=== PATIENT | female | born 1945 | race Caucasian/White ===

== ENCOUNTER 2017-03-30 11:45 | Observation (INO) | payer MEDICARE, MEDICAID ==
--- NOTE | 2017-03-30 12:06 | EDM.PDOC ---
[id number]: SICK FROM FOOT SURG FRI. [id number] Time Seen by Provider: 03/30/17 12:06 Source of Information: Reports: Patient, Family, Old records, RN, RN notes reviewed History Limitations: Reports: No limitations - History of Present Illness INITIAL COMMENTS - FREE TEXT/NARRATIVE: Patient just discharged a few days ago from [facility], status post right lower extremity surgery and complaining of nausea and vomiting, which she believes is due to constipation. Last BM 4-5 days ago (prior to surgery). Denies fever, chills, urinary symptoms or cough. Quality: Reports: Ache Severity: severe Improves with: Reports: None Worsens with: Reports: None Associated Symptoms: Reports: no other symptoms Right Leg Pain Score (Numeric/FACES): 10 - Related Data Allergies Allergy/AdvReac Type Severity Reaction Status Date / Time codeine Allergy Nausea and Verified 12/07/16 17:51 Vomiting Home Meds: Home Meds Gabapentin [Neurontin] 800 mg PO DAILY 12/07/16 [History] Calcium Carbonate [Calcium] 500 mg PO ASDIRECTED 03/30/17 [History] Cyanocobalamin (Vitamin B-12) [Vitamin B-12] 100 mcg PO ASDIRECTED 03/30/17 [ History] DULoxetine [Cymbalta] 30 mg PO DAILY 03/30/17 [History] DULoxetine [Cymbalta] 60 mg PO DAILY 03/30/17 [History] Magnesium Amino Acid Chelate [Magnesium] 100 mg PO ASDIRECTED 03/30/17 [History] Multivitamin [Multivitamins] 1 each PO ASDIRECTED 03/30/17 [History] [place]-3 Acid Ethyl Esters 1 gm PO ASDIRECTED 03/30/17 [History] Rizatriptan Benzoate [Maxalt] 5 mg PO ASDIRECTED PRN 03/30/17 [History] Acetaminophen [Tylenol] 650 mg PO Q4H PRN #0 tablet 03/31/17 [Rx] Baclofen [Lioresal] 10 mg PO TID PRN #0 03/31/17 [Rx] Docusate Sodium/Sennosides [Senna Plus] 1 tab PO BEDTIME PRN #0 tablet 03/31/17 [Rx] Polyethylene Glycol 3350 [MiraLAX] 17 gm PO DAILY PRN #0 packet 03/31/17 [Rx] oxyCODONE 5 mg PO Q4H PRN #0 03/31/17 [Rx] oxyCODONE HCl [Oxycodone HCl] 10 mg PO ASDIRECTED PRN #0 03/31/17 [Rx] traMADol HCl [Tramadol HCl] 50 mg PO ASDIRECTED PRN #0 03/31/17 [Rx] Past Medical History - Past Health History Medical/Surgical History: Denies Medical/Surgical History HEENT History: Reports: None Cardiovascular History: Reports: None Respiratory History: Reports: None Gastrointestinal History: Reports: None Genitourinary History: Reports: None [employer]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 Musculoskeletal History: Reports: Arthritis, Fibromyalgia Neurological History: Reports: Migraines Psychiatric History: Reports: None Endocrine/Metabolic History: Reports: Obesity/BMI 30+ Hematologic History: Reports: None Immunologic History: Reports: None Oncologic (Cancer) History: Reports: None Dermatologic History: Reports: None - Past Surgical History GI Surgical History: Reports: Bariatric procedure (lap band), Hernia, abdominal Musculoskeletal Surgical History: Reports: Other (see below) (right leg surgery) Social & Family History - Family History Family Medical History: Noncontributory - Tobacco Use Smoking Status *Q: Never Smoker - Caffeine Use Caffeine Use: Reports: Coffee, Soda - Recreational Drug Use Recreational Drug Use: No - Living Situation & Occupation Living situation: Reports: with family ED ROS GENERAL - Review of Systems Review Of Systems: ROS reveals no pertinent complaints other than HPI. ED EXAM, GENERAL - Physical Exam Exam: See Below Exam Limited By: No limitations General Appearance: alert, WD/WN, no apparent distress Eye Exam: bilateral eye: normal inspection Ears: normal external exam, normal canal, hearing grossly normal, normal TMs Nose: normal inspection, normal mucosa, no blood Throat/Mouth: Other (dry oral membranes) Head: atraumatic, normocephalic Neck: normal inspection, supple, non-tender, full range of motion Respiratory/Chest: no respiratory distress, lungs clear, normal breath sounds, no accessory muscle use, chest non-tender Cardiovascular: normal peripheral pulses, regular rate, rhythm, no edema, no gallop, no JVD, no murmur, no rub GI/Abdominal: Other (mild diffuse tenderness, normal bowel sounds, nondistended , no guarding, reound or rigidity. ) Back Exam: normal inspection, full range of motion, NT Extremities: other (RLE splint not remved.) Neurological: alert, oriented, CN II-XII intact, normal cognition, normal gait, normal reflexes, no motor/sensory deficits Psychiatric: normal affect, normal mood Skin Exam: Warm, Dry, Intact, Normal color, No rash Course - Vital Signs Last Recorded V/S: Last Vital Signs Temp 37.6 C 03/31/17 06:11 Pulse 71 03/31/17 06:11 Resp 16 03/31/17 06:11 BP 141/58 H 03/31/17 06:11 Pulse Ox 94 L 03/31/17 06:11 - Orders/Labs/Meds Orders: Active Orders 24 hr Category Date Time Status Enema [RC] ASDIRECTED Care 03/30/17 16:42 Active Labs: Laboratory Tests 03/30/17 03/30/17 03/30/17 Range/Units 13:21 13:32 13:32 WBC 7.2 (5.0-10.0) 10^3/uL RBC 4.12 L (4.2-5.4) 10^6/uL Hgb 12.7 (12.0-16.0) g/dL Hct 39.5 (37.0-47.0) % MCV 95.9 (80-100) fL MCH 30.8 (27.0-34.0) pg MCHC 32.2 L (33.0-35.0) g/dL Plt Count 208 (150-450) 10^3/uL Neut % (Auto) 59.5 (42.2-75.2) % Lymph % (Auto) 27.6 (20.5-50.1) % [place] % (Auto) 11.1 H (2-8) % Eos % (Auto) 1.4 (1.0-3.0) % Baso % (Auto) 0.4 (0.0-1.0) % Sodium 138 (135-145) mmol/L Potassium 3.8 (3.6-5.0) mmol/L Chloride 103 (101-111) mmol/L Carbon Dioxide 27.0 (21.0-31.0) mmol/L Anion Gap 11.8 BUN 6 L (7-18) mg/dL Creatinine 0.6 (0.6-1.3) mg/dL Est Cr Clr Drug Dosing TNP Estimated GFR (MDRD) > 60 BUN/Creatinine Ratio 10.00 Glucose 117 H (74-105) mg/dL Calcium 9.2 (8.4-10.2) mg/dl Total Bilirubin 0.7 (0.2-1.0) mg/dL AST 33 (10-42) IU/L ALT 28 (10-60) IU/L Alkaline Phosphatase 86 (42-121) IU/L Total Protein 6.3 L (6.7-8.2) g/dl Albumin 3.7 (3.2-5.5) g/dl Globulin 2.6 Albumin/Globulin Ratio 1.42 Amylase 18 L (28-100) U/L Lipase 17 L (22-51) U/L Urine Color Yellow (YELLOW) Urine Appearance Clear (CLEAR) Urine pH 8.5 (5.0-9.0) Ur Specific [place] 1.015 (1.005-1.030) Urine Protein Negative (NEGATIVE) Urine Glucose (UA) Negative (NEGATIVE) Urine Ketones 40 H (NEGATIVE) Urine Occult Blood Negative (NEGATIVE) Urine Nitrite Negative (NEGATIVE) Urine Bilirubin Negative (NEGATIVE) Urine Urobilinogen 0.2 (0.2-1.0) mg/dL Ur Leukocyte Esterase Negative (NEGATIVE) Urine RBC 0-5 /HPF Urine WBC 0-5 (0-5/HPF) /HPF Ur Epithelial Cells Occasional /HPF Urine Bacteria Few (0-FEW/HPF) /HPF Meds: Medications Discontinued Medications Generic Name Dose Route Start Last Admin Trade Name Freq PRN Reason Stop Dose Admin Acetaminophen 650 mg 03/30/17 19:53 Tylenol PO Q4H PRN Pain (Mild 1-3)/fever Duloxetine HCl 30 mg 03/30/17 21:00 Cymbalta PO BID TOMY Gabapentin 800 mg 03/31/17 09:00 03/31/17 10:10 Neurontin PO 800 mg DAILY TOMY Administration Heparin Sodium (Porcine) 5,000 units 03/30/17 22:00 03/31/17 06:13 Heparin Sodium SUBCUT 5,000 units Q8HR TOMY Administration Sodium Chloride 1,000 mls @ 999 mls/hr 03/30/17 14:55 03/30/17 17:25 Normal Saline IV 03/30/17 15:55 Infused .BOLUS ONE Infusion Sodium Chloride 1,000 mls @ 1,000 mls/hr 03/30/17 20:00 Normal Saline IV ASDIRECTED TOMY Sodium Chloride 1,000 mls @ 100 mls/hr 03/30/17 20:30 03/30/17 20:36 Normal Saline IV 100 mls/hr ASDIRECTED TOMY Administration Ibuprofen 200 mg 03/30/17 20:03 Motrin PO ASDIRECTED TOMY Magnesium Citrate 150 ml 03/30/17 14:56 03/30/17 18:11 Citrate Of Magnesia PO 03/30/17 14:57 150 ml ONETIME ONE Administration Magnesium Hydroxide 30 ml 03/30/17 19:53 Milk Of Magnesia PO Q12H PRN Constipation Morphine Sulfate 2 mg 03/30/17 19:53 Morphine IVPUSH Q2H PRN Pain (severe 7-10) Naloxone HCl 4 mg 03/30/17 14:58 03/30/17 15:17 Narcan .XX 03/30/17 14:59 4 mg ONETIME ONE Administration Non-Formulary Medication 60 mg 03/31/17 09:00 Duloxetine [Cymbalta] PO DAILY [facility] Non-Formulary Medication 100 mg 03/30/17 19:45 Magnesium Amino Acid Chelate [Magnesium] PO ASDIRECTED [facility] Non-Formulary Medication 5 mg 03/30/17 19:40 Rizatriptan Benzoate [Maxalt] PO ASDIRECTED PRN Headache Ondansetron HCl 4 mg 03/30/17 14:55 03/30/17 15:15 Zofran IV 03/30/17 14:56 4 mg ONETIME ONE Administration Ondansetron HCl 4 mg 03/30/17 19:53 Zofran IVPUSH Q6H PRN Nausea/Vomiting Oxycodone HCl 10 mg 03/30/17 20:15 03/30/17 20:38 Oxycodone PO 10 mg ASDIRECTED TOMY Administration Oxycodone HCl 5 mg 03/30/17 19:45 03/31/17 06:15 Oxycodone PO Not Given Q4H TOMY Oxycodone HCl 10 mg 03/31/17 06:27 Oxycodone PO Q4H PRN severe pain Oxycodone HCl 5 mg 03/31/17 06:27 Oxycodone PO Q4H PRN moderate pain Polyethylene Glycol 17 gm 05/08/17 19:53 03/30/17 20:32 Miralax PO 17 gm DAILY PRN Administration Constipation Promethazine HCl 6.25 mg 03/30/17 19:53 Phenergan IM Q6H PRN Nausea/Vomiting Senna/Docusate Sodium 1 tab 03/30/17 19:53 03/30/17 20:37 Senna Plus PO 1 tab BEDTIME PRN Administration Constipation Sodium Chloride 10 ml 03/30/17 14:55 03/30/17 18:10 Saline Flush FLUSH 10 ml ASDIRECTED PRN Administration Keep Vein Open Tramadol HCl 50 mg 03/30/17 19:45 Ultram PO ASDIRECTED TOMY Zolpidem Tartrate 5 mg 03/30/17 19:53 Ambien PO BEDTIME PRN Sleep - Radiology Interpretation Free Text/Narrative:: Abdomen: Obstipation per rad report. Departure - Departure Time of Disposition: 15:30 Disposition: Refer to Observation Clinical Impression: Obstipation Constipation Qualifiers: Constipation type: drug induced constipation Qualified Code(s): K59.03 - Drug induced constipation Vomiting Qualifiers: Vomiting type: unspecified Vomiting Intractability: unspecified Nausea presence : with nausea Qualified Code(s): R11.2 - Nausea with vomiting, unspecified - My Orders Last 24 Hours: My Active Orders 03/30/17 16:42 Enema [RC] ASDIRECTED - Assessment/Plan Last 24 Hours: My Active Orders 03/30/17 16:42 Enema [RC] ASDIRECTED Departure - Departure Time of Disposition: 18:51 (Admit to Dr. Jiang) Disposition: Refer to Observation Condition: fair Clinical Impression: Obstipation Constipation Qualifiers: Constipation type: drug induced constipation Qualified Code(s): K59.03 - Drug induced constipation Vomiting Qualifiers: Vomiting type: unspecified Vomiting Intractability: unspecified Nausea presence : with nausea Qualified Code(s): R11.2 - Nausea with vomiting, unspecified
[2017-03-30 14:01] LABS: CHLORIDE,CL 103 mmol/L (101-111); SODIUM,NA 138 mmol/L (135-145)
[2017-03-30] MEDS ORDERED: Ondansetron 4 MG/2 ML SDV IV ONE (14:55)
[2017-03-30] MEDS ORDERED: Sodium Chloride 0.9% 1,000 ML IV ONE (14:55)
[2017-03-30] MEDS ORDERED: Sodium Chloride 0.9% 10 ML Syringe FLUSH PRN (14:55)
[2017-03-30] MEDS ORDERED: Magnesium Citrate Solution 296 ML Bottle PO ONE (14:56)
[2017-03-30] MEDS ORDERED: Naloxone 2 MG/2 ML Syringe ONE (14:58)
--- NOTE | 2017-03-30 15:16 | CR ---
CLINICAL HISTORY: 71-year-old female with nausea, vomiting and constipation. INTERPRETATION: Flat plate and left lateral decubitus films of the abdomen confirm previous cholecys tectomy and gastric band surgery (probable gastroesophageal surgery at the hiatus). Levorotoscoliosis, multilevel disc disease and chronic hypertrophic arthritic changes of the spine. Large volume of stool in the right and transverse colon. No abdominal soft tissue mass or signs of mechanical small bowel obstruction. Lung bases are clear. CONCLUSION: Obstipation. Signs of multiple previous surgeries. No current evidence of mechanical bowel obstruction.
[2017-03-30] MEDS ORDERED: RIZATRIPTAN BENZOATE 5 MG PO PRN (19:40)
[2017-03-30] MEDS ORDERED: MAGNESIUM AMINO ACID CHELATE PO SCH (19:45)
[2017-03-30] MEDS ORDERED: traMADol 50 MG Tab PO SCH (19:45)
[2017-03-30] MEDS ORDERED: Magnesium Hydroxide 400 MG/5 ML Susp 30 ML Cup PO PRN (19:53)
[2017-03-30] MEDS ORDERED: Morphine 2 MG/ML Syringe IVPUSH PRN (19:53)
[2017-03-30] MEDS ORDERED: Acetaminophen 325 MG Tab PO PRN (19:53)
[2017-03-30] MEDS ORDERED: Polyethylene Glycol 3350 Powder 17 GM Packet PO PRN (19:53)
[2017-03-30] MEDS ORDERED: Zolpidem 5 MG Tab PO PRN (19:53)
[2017-03-30] MEDS ORDERED: Ondansetron 4 MG/2 ML SDV IVPUSH PRN (19:53)
[2017-03-30] MEDS ORDERED: Promethazine 25 MG/ML SDV IM PRN (19:53)
[2017-03-30] MEDS ORDERED: Sodium Chloride 0.9% 1,000 ML IV SCH ×2 (20:00→20:30)
[2017-03-30] MEDS ORDERED: Ibuprofen 200 MG Tab PO SCH (20:03)
--- NOTE | 2017-03-30 20:11 | PCM.HP ---
H&P History of Present Illness - General Date of Service: 03/30/17 Admit Problem/Dx: Admission Diagnosis/Problem Admission Diagnosis/Problem Constipation Source of Information: Patient History Limitations: Reports: No limitations - History of Present Illness Initial Comments - Free Text/Narative: Ms Melani Francis is a 71-year-old female with medical history of migraines, osteoarthritis, fibromyalgia, obstructive sleep apnea, depression and anxiety who underwent surgical right tibiotalar revision on 03/27/17 due to continued pain. surgery was performed under general anesthesia. only postoperative condition was elevated blood pressure at 190s which was thought to be due to pain. patient presented to the emergency room today for not having bowel movement for over one week and started having nausea and abdominal discomfort since yesterday. She denies vomiting, sharp abdomen pain, fever, chills, chest pain, shortness of breath, or any other symptoms. patient is still complaining of her postsurgical right leg pain and is taking her oxycodone in addition to her home medications. She could not tell why she was taking baclofen. in the emergency room her CBC and BMP were unremarkable. Abdomen x-ray was significant for significant amount of stool in the colon. She was given milk of magnesia, naloxone, IV fluids, and 2 enemas during extended ER stay. Patient had few small bowel movement but she did not feel comforted. However after being admitted for observation she had good bowel movement and she felt better afterwards. She does not feel going home tonight. Right Leg Pain Score (Numeric/FACES): 10 - Related Data Allergies/Adverse Reactions: Allergies Allergy/AdvReac Type Severity Reaction Status Date / Time codeine Allergy Nausea and Verified 12/07/16 17:51 Vomiting Home Medications: Home Meds Gabapentin [Neurontin] 800 mg PO DAILY 12/07/16 [History] Baclofen [Lioresal] 10 mg PO TID 03/30/17 [History] Calcium Carbonate [Calcium] 500 mg PO ASDIRECTED 03/30/17 [History] Cyanocobalamin (Vitamin B-12) [Vitamin B-12] 100 mcg PO ASDIRECTED 03/30/17 [ History] DULoxetine [Cymbalta] 30 mg PO BID 03/30/17 [History] DULoxetine [Cymbalta] 60 mg PO DAILY 03/30/17 [History] Ibuprofen [Advil] 200 mg PO ASDIRECTED 03/30/17 [History] Magnesium Amino Acid Chelate [Magnesium] 100 mg PO ASDIRECTED 03/30/17 [History] Multivitamin [Multivitamins] 1 each PO ASDIRECTED 03/30/17 [History] [place]-3 Acid Ethyl Esters 1 gm PO ASDIRECTED 03/30/17 [History] Rizatriptan Benzoate [Maxalt] 5 mg PO ASDIRECTED PRN 03/30/17 [History] oxyCODONE 5 mg PO Q4H 03/30/17 [History] oxyCODONE HCl [Oxycodone HCl] 10 mg PO ASDIRECTED 03/30/17 [History] traMADol HCl [Tramadol HCl] 50 mg PO ASDIRECTED 03/30/17 [History] Past Medical History - Past Health History Medical/Surgical History: Denies Medical/Surgical History HEENT History: Reports: None Cardiovascular History: Reports: None Respiratory History: Reports: None Gastrointestinal History: Reports: None Genitourinary History: Reports: None 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 Musculoskeletal History: Reports: Arthritis, Fibromyalgia Neurological History: Reports: Migraines Psychiatric History: Reports: None Endocrine/Metabolic History: Reports: Obesity/BMI 30+ Other Endocrine/Metabolic History: impaired glucose tolerance Hematologic History: Reports: None Immunologic History: Reports: None Oncologic (Cancer) History: Reports: None Dermatologic History: Reports: None Social & Family History - Family History Family Medical History: Noncontributory OBGYN: Reports: - Tobacco Use Smoking Status *Q: Never Smoker - Caffeine Use Caffeine Use: Reports: Coffee, Soda - Recreational Drug Use Recreational Drug Use: No H&P Review of Systems - Review of Systems: Review Of Systems: See Below General: Reports: no symptoms HEENT: Reports: no symptoms Pulmonary: Reports: No Symptoms Cardiovascular: Reports: no symptoms Gastrointestinal: Reports: Constipation. Denies: Black stool, Bloody stool, Diarrhea, Decreased appetite, Difficulty swallowing, Distension, Hematemesis, Hematochezia, Melena, Stool incontinence, Vomiting Genitourinary: Reports: no symptoms Musculoskeletal: Reports: no symptoms (accept what mentioned above) Skin: Reports: no symptoms Psychiatric: Reports: no symptoms Neurological: Reports: No Symptoms Hematologic/Lymphatic: Reports: no symptoms Immunologic: Reports: no symptoms Exam - Exam Exam: See Below - Vital Signs Vital Signs: Last Vital Signs Temp 36.4 C 03/30/17 13:20 Pulse 73 03/30/17 16:58 Resp 20 03/30/17 16:58 BP 169/83 H 03/30/17 16:58 Pulse Ox 98 03/30/17 16:58 Weight: 96.162 kg - Exam General: alert, oriented, cooperative. No: mild distress, moderate distress, severe distress, sedated, lethargic, obtunded HEENT: Conjunctiva clear, EACs clear, EOMI, Hearing intact, Mucosa moist & pink , Nares patent, Normal nasal septum, Posterior pharynx clear, Pupils equal, Pupils reactive, TMs clear Neck: supple, trachea midline Lungs: Clear to auscultation, Normal respiratory effort Cardiovascular: regular rate, regular rhythm Abdomen: normal bowel sounds, soft, tenderness (mild and generalized). No: organomegaly, peritoneal signs, distention, guarding, rigidity, rebound, absent bowel sounds, hyperactive bowel sounds, hypoactive bowel sounds, tympanic bowel sounds, hepatomegaly, splenomegaly, hernia, mass, McBurney's sign, obturator sign, Rovsing's sign, Rosales's sign (Female) Exam: Deferred Rectal (Female) Exam: Deferred Back Exam: normal inspection, full range of motion Extremities: normal pulses, edema (postsurgical edema and some right leg above the splint. Splint is intact). No: clubbing, cyanosis Skin: warm, dry, intact Neurological: cranial nerves intact, strength equal bilateral, normal speech, normal tone Neuro Extensive - Mental Status: alert, oriented x3, normal mood/affect, normal cognition, memory intact Neuro Extensive - Motor, Sensory, Reflexes: CN II-XII intact Psychiatric: alert, normal affect, normal mood. No: anxious, depressed, agitated, suicidal ideation, homicidal ideation, hallucinations, withdrawal symptoms - Patient Data Result Diagrams: 03/30/17 13:32 03/30/17 13:32 *Q Meaningful Use (ADM) - VTE *Q VTE Criteria *Q: - Stroke *Q Stroke Criteria *Q: - AMI *Q AMI Criteria *Q: - Problem List (1) Nausea SNOMED Code(s): 175115262 ICD Code: R11.0 - NAUSEA Status: Acute Current Visit: Yes (2) Constipation SNOMED Code(s): 43444903 ICD Code: K59.00 - CONSTIPATION, UNSPECIFIED Status: Acute Current Visit : Yes Qualifiers: Constipation type: drug induced constipation Qualified Code(s): K59.03 - Drug induced constipation (3) Obstipation SNOMED Code(s): 675068668 ICD Code: K59.00 - CONSTIPATION, UNSPECIFIED Status: Acute Current Visit : Yes Problem List Initiated/Reviewed/Updated: Yes Orders Last 24hrs: Active Orders 24 hr Category Date Time Status Patient Status [ADT] Routine ADT 03/30/17 19:53 Ordered Intake and Output [RC] QSHIFT Care 03/30/17 19:55 Ordered Oxygen Therapy [RC] PRN Care 03/30/17 19:53 Ordered Up ad Jennifer [RC] ASDIRECTED Care 03/30/17 19:53 Ordered VTE/DVT Education [RC] PER UNIT ROUTINE Care 03/30/17 19:53 Ordered Vital Signs [RC] Q4H Care 03/30/17 19:53 Ordered Regular Diet [DIET] Diet 03/30/17 Breakfast Ordered BASIC METABOLIC PANEL,BMP [CHEM] AM Lab 03/31/17 05:11 Ordered MAGNESIUM [CHEM] AM Lab 03/31/17 05:11 Ordered Acetaminophen [Tylenol] Med 03/30/17 19:53 Ordered 650 mg PO Q4H PRN DULoxetine [Cymbalta] Med 03/30/17 21:00 Ordered 30 mg PO BID DULoxetine [Cymbalta] Med 03/31/17 09:00 Ordered 60 mg PO DAILY Docusate Sodium/Sennosides [Senna Plus] Med 03/30/17 19:53 Ordered 1 tab PO BEDTIME PRN Gabapentin Med 03/31/17 09:00 Ordered 800 mg PO DAILY Heparin Sodium Med 03/30/17 22:00 Ordered 5,000 units SUBCUT Q8HR Ibuprofen [Advil] Med 03/30/17 19:45 Ordered 200 mg PO ASDIRECTED Magnesium Amino Acid Chelate [Magnesium] Med 03/30/17 19:45 Ordered 100 mg PO ASDIRECTED Magnesium Hydroxide [Milk of Magnesia] Med 03/30/17 19:53 Ordered 30 ml PO Q12H PRN Morphine Med 03/30/17 19:53 Ordered 2 mg IVPUSH Q2H PRN Ondansetron [Zofran] Med 03/30/17 19:53 Ordered 4 mg IVPUSH Q6H PRN Polyethylene Glycol 3350 [MiraLAX] Med 03/30/17 19:53 Ordered 17 gm PO DAILY PRN Promethazine [Phenergan] Med 03/30/17 19:53 Ordered 6.25 mg IM Q6H PRN Rizatriptan Benzoate [Maxalt] Med 03/30/17 19:40 Ordered 5 mg PO ASDIRECTED PRN Sodium Chloride 0.9% [Normal Saline] 1,000 ml Med 03/30/17 20:00 Ordered IV ASDIRECTED Zolpidem [Ambien] Med 03/30/17 19:53 Ordered 5 mg PO BEDTIME PRN oxyCODONE Med 03/30/17 19:45 Ordered 5 mg PO Q4H oxyCODONE HCl [Oxycodone HCl] Med 03/30/17 19:45 Ordered 10 mg PO ASDIRECTED traMADol [Ultram] Med 03/30/17 19:45 Ordered 50 mg PO ASDIRECTED Resuscitation Status Routine Resus Stat 03/30/17 19:53 Ordered Medication Orders Acetaminophen (Tylenol) 650 mg PO Q4H PRN PRN Reason: Pain (Mild 1-3)/fever Duloxetine HCl (Cymbalta) 30 mg PO BID [facility] Gabapentin (Neurontin) 800 mg PO DAILY [facility] Heparin Sodium (Porcine) (Heparin Sodium) 5,000 units SUBCUT Q8HR [facility] Sodium Chloride (Normal Saline) 1,000 mls @ 1,000 mls/hr IV ASDIRECTED [facility] Magnesium Hydroxide (Milk Of Magnesia) 30 ml PO Q12H PRN PRN Reason: Constipation Morphine Sulfate (Morphine) 2 mg IVPUSH Q2H PRN PRN Reason: Pain (severe 7-10) Non-Formulary Medication (Duloxetine [Cymbalta]) 60 mg PO DAILY [facility] Non-Formulary Medication (Ibuprofen [Advil]) 200 mg PO ASDIRECTED [facility] Non-Formulary Medication (Magnesium Amino Acid Chelate [Magnesium]) 100 mg PO ASDIRECTED [facility] Non-Formulary Medication (Rizatriptan Benzoate [Maxalt]) 5 mg PO ASDIRECTED PRN PRN Reason: Headache Non-Formulary Medication (Oxycodone Hcl [Oxycodone Hcl]) 10 mg PO ASDIRECTED [facility] Ondansetron HCl (Zofran) 4 mg IVPUSH Q6H PRN PRN Reason: Nausea/Vomiting Oxycodone HCl (Oxycodone) 5 mg PO Q4H TOMY Polyethylene Glycol (Miralax) 17 gm PO DAILY PRN PRN Reason: Constipation Promethazine HCl (Phenergan) 6.25 mg IM Q6H PRN PRN Reason: Nausea/Vomiting Senna/Docusate Sodium (Senna Plus) 1 tab PO BEDTIME PRN PRN Reason: Constipation Sodium Chloride (Saline Flush) 10 ml FLUSH ASDIRECTED PRN PRN Reason: Keep Vein Open Last Admin: 03/30/17 18:10 Dose: 10 ml Tramadol HCl (Ultram) 50 mg PO ASDIRECTED [facility] Zolpidem Tartrate (Ambien) 5 mg PO BEDTIME PRN PRN Reason: Sleep Assessment/Plan Comment:: constipation, most likely from opiates Patient received milk of magnesia, naloxone, IV fluids, and 2 enemas during extended ER stay he shouldn't had some relief after being admitted Nausea From constipation Antiemetic as needed Right leg pain, status post surgical repair on 03/27/17 Pain medicine as needed. She was advised to avoid frequent usage of opiates of possible fibromyalgia Continue his Cymbalta and Neurontin History of migraine Rizatriptan as needed patient continued to bowl movement and dfields that are tomorrow she can be discharged tomorrow. heparin for DVT prophylaxis She wants to be full code
[2017-03-30] MEDS ORDERED: oxyCODONE 5 MG Tab PO SCH (20:15)
[2017-03-30] MEDS: Heparin Sodium 5,000 Units/ML Vial SUBCUT SCH (20:43)
[2017-03-30] MEDS ORDERED: DULoxetine 30 MG Cap PO SCH (21:00)
[2017-03-30] MEDS: oxyCODONE 5 MG Tab PO SCH (21:49)
[2017-03-31] MEDS: Heparin Sodium 5,000 Units/ML Vial SUBCUT SCH ×2 (00:17→06:13)
[2017-03-31] MEDS: oxyCODONE 5 MG Tab PO SCH ×2 (00:22→06:15)
[2017-03-31 06:13] VITALS: BP 141/58
[2017-03-31] MEDS ORDERED: oxyCODONE 5 MG Tab PO PRN ×2 (06:27)
[2017-03-31 07:03] LABS: CHLORIDE,CL 106 mmol/L (101-111); SODIUM,NA 140 mmol/L (135-145)
[2017-03-31] MEDS ORDERED: Gabapentin 400 MG Cap PO SCH (09:00)
[2017-03-31] MEDS ORDERED: Non-Formulary Medication 1 Each (Duloxetine [Cymbalta] 60 MG) PO SCH (09:00)
--- NOTE | 2017-03-31 09:58 | PCM.DCSUM1 ---
Discharge Summary - Hospital Course Free Text/Narrative:: Ms Melani Francis is a 71-year-old female with medical history of migraines, osteoarthritis, fibromyalgia, obstructive sleep apnea, depression and anxiety who underwent surgical right tibiotalar revision on 03/27/17 due to continued pain. surgery was performed under general anesthesia. only postoperative issue was elevated blood pressure at 190s which was thought to be due to pain. patient presented to the emergency room yesterday for not having bowel movement for over one week and started having nausea and abdominal discomfort the day before admission. She denies vomiting, sharp abdomen pain, fever, chills, chest pain, shortness of breath, or any other symptoms. patient is still complaining of her postsurgical right leg pain and is taking her oxycodone in addition to her home medications. She could not tell why she was taking baclofen. In the emergency room her CBC and BMP were unremarkable. Abdomen x-ray was significant for significant amount of stool in the colon. She was given milk of magnesia, naloxone, IV fluids, and 2 enemas during extended ER stay. Patient had few small bowel movement but she did not feel comforted. However after being admitted for observation she had one large bowel movement and she felt better afterwards. since then patient has been treated over abdominal discomfort , nausea and is feeling comfortable. Her leg pain is controlled. she had an uneventful night and she has no concern this morning. she is passing gas. She wants to go home. She was discharged home. I changed her opiate medication and baclofen from schedule to as needed. She was advised on drinking that amount of fluid, adding supplemental fibers, and using stool softener as needed. She was advised to discuss the baclofen with her primary care provider. Patient verbalized understanding and agreed to the plan. heparin was given for DVT prophylaxis She wanted to be full code - Discharge Data Discharge Date: 03/31/17 Discharge Disposition: Home, Self-Care 01 Condition: Good - Discharge Diagnosis/Problem(s) (1) Nausea SNOMED Code(s): 963477397 ICD Code: R11.0 - NAUSEA Status: Acute Current Visit: Yes (2) Constipation SNOMED Code(s): 55092960 ICD Code: K59.00 - CONSTIPATION, UNSPECIFIED Status: Acute Current Visit : Yes Qualifiers: Constipation type: drug induced constipation Qualified Code(s): K59.03 - Drug induced constipation (3) Obstipation SNOMED Code(s): 149368633 ICD Code: K59.00 - CONSTIPATION, UNSPECIFIED Status: Acute Current Visit : Yes - Patient Instructions Diet: Heart Healthy Diet Activity: As Tolerated Showering/Bathing: May Shower Notify Provider of: Fever, Nausea and/or Vomiting - Discharge Plan Home Medications: Home Meds Gabapentin [Neurontin] 800 mg PO DAILY 12/07/16 [History] Calcium Carbonate [Calcium] 500 mg PO ASDIRECTED 03/30/17 [History] Cyanocobalamin (Vitamin B-12) [Vitamin B-12] 100 mcg PO ASDIRECTED 03/30/17 [ History] DULoxetine [Cymbalta] 30 mg PO BID 03/30/17 [History] DULoxetine [Cymbalta] 60 mg PO DAILY 03/30/17 [History] Magnesium Amino Acid Chelate [Magnesium] 100 mg PO ASDIRECTED 03/30/17 [History] Multivitamin [Multivitamins] 1 each PO ASDIRECTED 03/30/17 [History] [place]-3 Acid Ethyl Esters 1 gm PO ASDIRECTED 03/30/17 [History] Rizatriptan Benzoate [Maxalt] 5 mg PO ASDIRECTED PRN 03/30/17 [History] Acetaminophen [Tylenol] 650 mg PO Q4H PRN #0 tablet 03/31/17 [Rx] Baclofen [Lioresal] 10 mg PO TID PRN #0 03/31/17 [Rx] Docusate Sodium/Sennosides [Senna Plus] 1 tab PO BEDTIME PRN #0 tablet 03/31/17 [Rx] Polyethylene Glycol 3350 [MiraLAX] 17 gm PO DAILY PRN #0 packet 03/31/17 [Rx] oxyCODONE 5 mg PO Q4H PRN #0 03/31/17 [Rx] oxyCODONE HCl [Oxycodone HCl] 10 mg PO ASDIRECTED PRN #0 03/31/17 [Rx] traMADol HCl [Tramadol HCl] 50 mg PO ASDIRECTED PRN #0 03/31/17 [Rx] Forms: ED Department Discharge Referrals: Tim Alejandro MD [Primary Care Provider] - - General Info Date of Service: 03/31/17 Admission Dx/Problem (Free Text: Admission Diagnosis/Problem Admission Diagnosis/Problem Constipation Functional Status: Reports: pain controlled - Review of Systems General: Reports: No Symptoms HEENT: Reports: no symptoms Pulmonary: Reports: no symptoms Cardiovascular: Reports: No Symptoms Gastrointestinal: Denies: Decreased appetite, Hematochezia, Melena Genitourinary: Reports: no symptoms Musculoskeletal: Reports: leg pain (chronic). Denies: neck pain, shoulder pain , back pain Skin: Reports: no symptoms Neurological: Reports: No Symptoms Psychiatric: Reports: no symptoms. Denies: hallucinations, suicidal ideation, homicidal ideation - Patient Data Vitals - Most Recent: Last Vital Signs Temp 37.6 C 03/31/17 06:11 Pulse 71 03/31/17 06:11 Resp 16 03/31/17 06:11 BP 141/58 H 03/31/17 06:11 Pulse Ox 94 L 03/31/17 06:11 Weight - Most Recent: 96.162 kg I&O - Last 24 hours: Intake & Output 03/30/17 03/31/17 03/31/17 22:59 06:59 14:59 Intake Total 420 1089 Balance 420 1089 Lab Results - Last 24 hrs: Laboratory Results - last 24 hr 03/31/17 Range/Units 06:18 Sodium 140 (135-145) mmol/L Potassium 4.2 (3.6-5.0) mmol/L Chloride 106 (101-111) mmol/L Carbon Dioxide 28.0 (21.0-31.0) mmol/L Anion Gap 10.2 BUN 5 L (7-18) mg/dL Creatinine 0.5 L (0.6-1.3) mg/dL Est Cr Clr Drug Dosing 96.61 mL/min Estimated GFR (MDRD) > 60 Glucose 106 H (74-105) mg/dL Calcium 8.4 (8.4-10.2) mg/dl Magnesium 2.0 (1.8-2.5) mg/dL Med Orders - Current: Current Medications Acetaminophen (Tylenol) 650 mg PO Q4H PRN PRN Reason: Pain (Mild 1-3)/fever Duloxetine HCl (Cymbalta) 30 mg PO BID [facility] Gabapentin (Neurontin) 800 mg PO DAILY [facility] Heparin Sodium (Porcine) (Heparin Sodium) 5,000 units SUBCUT Q8HR TOMY Last Admin: 03/31/17 06:13 Dose: 5,000 units Sodium Chloride (Normal Saline) 1,000 mls @ 100 mls/hr IV ASDIRECTED [facility] Last Admin: 03/30/17 20:36 Dose: 100 mls/hr Ibuprofen (Motrin) 200 mg PO ASDIRECTED [facility] Magnesium Hydroxide (Milk Of Magnesia) 30 ml PO Q12H PRN PRN Reason: Constipation Morphine Sulfate (Morphine) 2 mg IVPUSH Q2H PRN PRN Reason: Pain (severe 7-10) Non-Formulary Medication (Duloxetine [Cymbalta]) 60 mg PO DAILY [facility] Non-Formulary Medication (Magnesium Amino Acid Chelate [Magnesium]) 100 mg PO ASDIRECTED [facility] Non-Formulary Medication (Rizatriptan Benzoate [Maxalt]) 5 mg PO ASDIRECTED PRN PRN Reason: Headache Ondansetron HCl (Zofran) 4 mg IVPUSH Q6H PRN PRN Reason: Nausea/Vomiting Oxycodone HCl (Oxycodone) 10 mg PO Q4H PRN PRN Reason: severe pain Oxycodone HCl (Oxycodone) 5 mg PO Q4H PRN PRN Reason: moderate pain Polyethylene Glycol (Miralax) 17 gm PO DAILY PRN PRN Reason: Constipation Last Admin: 03/30/17 20:32 Dose: 17 gm Promethazine HCl (Phenergan) 6.25 mg IM Q6H PRN PRN Reason: Nausea/Vomiting Senna/Docusate Sodium (Senna Plus) 1 tab PO BEDTIME PRN PRN Reason: Constipation Last Admin: 03/30/17 20:37 Dose: 1 tab Sodium Chloride (Saline Flush) 10 ml FLUSH ASDIRECTED PRN PRN Reason: Keep Vein Open Last Admin: 03/30/17 18:10 Dose: 10 ml Tramadol HCl (Ultram) 50 mg PO ASDIRECTED [facility] Zolpidem Tartrate (Ambien) 5 mg PO BEDTIME PRN PRN Reason: Sleep Discontinued Medications Sodium Chloride (Normal Saline) 1,000 mls @ 999 mls/hr IV .BOLUS ONE Stop: 03/30/17 15:55 Last Infusion: 03/30/17 17:25 Dose: Infused Sodium Chloride (Normal Saline) 1,000 mls @ 1,000 mls/hr IV ASDIRECTED [facility] Magnesium Citrate (Citrate Of Magnesia) 150 ml PO ONETIME ONE Stop: 03/30/17 14:57 Last Admin: 03/30/17 18:11 Dose: 150 ml Naloxone HCl (Narcan) 4 mg .XX ONETIME ONE Stop: 03/30/17 14:59 Last Admin: 03/30/17 15:17 Dose: 4 mg Ondansetron HCl (Zofran) 4 mg IV ONETIME ONE Stop: 03/30/17 14:56 Last Admin: 03/30/17 15:15 Dose: 4 mg Oxycodone HCl (Oxycodone) 10 mg PO ASDIRECTED [facility] Last Admin: 03/30/17 20:38 Dose: 10 mg Oxycodone HCl (Oxycodone) 5 mg PO Q4H [facility] Last Admin: 03/31/17 06:15 Dose: Not Given - Exam General: Reports: alert, oriented, cooperative, no acute distress. Denies: mild distress, moderate distress, severe distress, sedated, lethargic, obtunded HEENT: Reports: Pupils equal, Pupils reactive, EOMI, Mucous membr. moist/pink Neck: Reports: supple, trachea midline, no JVD Lungs: Reports: Clear to auscultation, Normal respiratory effort Cardiovascular: Reports: Regular Rate, Regular Rhythm Abdomen: Reports: bowel sounds present, soft, no tenderness, no distension. Denies: rigidity, rebound, guarding, tenderness, distension, abnormal bowel sounds, CVA tenderness (Female) Exam: Deferred Rectal (Female) Exam: Deferred Back Exam: Reports: normal inspection, full range of motion Extremities: Reports: normal pulses, no clubbing, no cyanosis, no calf tenderness, other (right leg is in a splint. no change on lower extremities exam from yesterday) Skin: Reports: warm, intact Neurological: Reports: no new focal deficit, normal speech, normal tone Psy/Mental Status: Reports: alert, normal affect, normal mood. Denies: agitated , suicidal ideation, homicidal ideation, withdrawal symptoms *Q Meaningful Use (DIS) - VTE *Q VTE Criteria *Q: - Stroke *Q Stroke Criteria *Q: - AMI *Q AMI Criteria *Q:
== END 2017-03-31 11:00 | disposition home or self-care (01) ==
LOC: DL.ED 11:45 → UNDOADMOB 19:33 → DL.MS 19:33
PROVIDERS: ADMIT Family Medicine; ATTEND Family Medicine
DX: R11.0 Nausea (principal); K59.03 Drug induced constipation; G47.33 Obstructive sleep apnea (adult) (pediatric); F32.9 Major depressive disorder, single episode, unspecified; F41.9 Anxiety disorder, unspecified; Z88.8 Allergy status to other drugs, medicaments and biological substances; Z79.899 Other long term (current) drug therapy; E66.9 Obesity, unspecified; Z68.30 Body mass index [BMI] 30.0-30.9, adult
CPT/HCPCS: 36415; 74020; 80048; 80053; 81001; 82150; 83690; 83735; 85025; 96372; 96374; 99285; A9270; G0378; J1644; J2310; J2405; J7030; J7050; 96361; 99217; 99284

== ENCOUNTER 2021-07-08 11:50 | Emergency (ER) | payer MEDICARE, MEDICAID ==
[2021-07-08 12:03] VITALS: BP 178/84; PULSE 73
--- NOTE | 2021-07-08 12:06 | EDM.PDOC ---
ED HPI GENERAL MEDICAL PROBLEM - General Chief Complaint: General Stated Complaint: AMBULANCE Time Seen by Provider: 07/08/21 12:03 Source of Information: Reports: Patient, Old Records, RN, RN Notes Reviewed History Limitations: Reports: No Limitations - History of Present Illness INITIAL COMMENTS - FREE TEXT/NARRATIVE: Melani is a 75 y/o female who presents to the ED via [facility] with complaints of seizure-like activity. The patient states the episode was witness by a friend who notified EMS; she notes she remembers the event in entirety and was able to speak during the seizure. Her friend became concerned when her head "jerked back" and she could not move it forward. The patient states the episode lasted about 5 minutes with no post-ictal state or repeat similar activity. She denies history of seizures. EMS denies seizure-like activity en route; she was not given any seizure medications en route. The patient denies recent illness, fever, shaking chills, headache, vision changes, chest pain/pressure, abdominal pain, nausea, vomiting, dysuria, or diarrhea. She does attest to shortness of breath during the episode and chronic back pain. She denies changes to her diet or medications. The patient attests to smoking 1/4 -1/2 pack of cigarettes per day as well as 2-3 voda drinks daily; her last drink was last night. She denies recreational drug use. back Pain Score (Numeric/FACES): 5 - Related Data Allergies Allergy/AdvReac Type Severity Reaction Status Date / Time codeine Allergy Nausea and Verified 07/08/21 12:03 Vomiting oxycodone Allergy Cannot Verified 07/20/21 20:37 Remember Home Meds: Home Meds Gabapentin [Neurontin] 800 mg PO TID 12/07/16 [History] Calcium Carbonate [Calcium] 500 mg PO DAILY 03/30/17 [History] Cyanocobalamin (Vitamin B-12) [Vitamin B-12] 100 mcg PO DAILY 03/30/17 [History] DULoxetine [Cymbalta] 60 mg PO DAILY 03/30/17 [History] Magnesium Amino Acid Chelate [Magnesium] 100 mg PO DAILY 03/30/17 [History] Multivitamin [Multivitamins] 1 each PO DAILY 03/30/17 [History] [place]-3 Acid Ethyl Esters 1 gm PO DAILY 03/30/17 [History] Acetaminophen [Tylenol] 650 mg PO Q4H PRN #0 tablet 03/31/17 [Rx] Docusate Sodium/Sennosides [Senna Plus] 1 tab PO BEDTIME PRN #0 tablet 03/31/17 [Rx] Polyethylene Glycol 3350 [MiraLAX] 17 gm PO DAILY PRN #0 packet 03/31/17 [Rx] Levothyroxine [Synthroid] 50 mcg PO ACBREAKFAST 07/20/21 [History] buPROPion HCL [Bupropion Xl] 300 mg PO DAILY 07/20/21 [History] cephALEXin [Keflex] 500 mg PO BID #10 cap 07/22/21 [Rx] Past Medical History - Past Health History Medical/Surgical History: Denies Medical/Surgical History HEENT History: Reports: None Other HEENT History: cataract surgery bilaterally Cardiovascular History: Reports: None Respiratory History: Reports: None Gastrointestinal History: Reports: None Genitourinary History: Reports: None Other Genitourinary History: stress incontinence TECHNICAL SPECIALIST History: Reports: None Other TECHNICAL SPECIALIST History: nvd x8 Musculoskeletal History: Reports: Arthritis, Fibromyalgia Neurological History: Reports: Migraines Psychiatric History: Reports: None Endocrine/Metabolic History: Reports: Obesity/BMI 30+ Other Endocrine/Metabolic History: impaired glucose tolerance Hematologic History: Reports: None Immunologic History: Reports: None Oncologic (Cancer) History: Reports: None Dermatologic History: Reports: None - Infectious Disease History Infectious Disease History: Reports: Chicken Pox, Measles, Mumps - Past Surgical History GI Surgical History: Reports: Bariatric Procedure, Hernia, Abdominal Musculoskeletal Surgical History: Reports: Other (See Below) Social & Family History - Family History Family Medical History: No Pertinent Family History OBGYN: Reports: - Caffeine Use Caffeine Use: Reports: Coffee, Soda - Living Situation & Occupation Living situation: Reports: with Family ED ROS GENERAL - Review of Systems Review Of Systems: Comprehensive ROS is negative, except as noted in HPI. ED EXAM, GENERAL - Physical Exam Exam: See Below Exam Limited By: No Limitations General Appearance: Alert, No Apparent Distress, Obese Eye Exam: Bilateral Eye: EOMI, Normal Inspection, PERRL (4mm), Other (No nystagmus) Ears: Normal External Exam, Normal Canal, Hearing Grossly Normal, Normal TMs Ear Exam: Bilateral Ear: Auricle Normal, Canal Normal, TM normal Nose: Normal Inspection, Normal Mucosa, No Blood Throat/Mouth: Normal Voice, No Airway Compromise. No: Normal Lips (Dry cracked), Normal Oropharynx (Dry mucous membranes) Head: Atraumatic, Normocephalic Neck: Normal Inspection, Supple, Non-Tender, Full Range of Motion. No: Lymphadenopathy (L), Lymphadenopathy (R) Respiratory/Chest: No Respiratory Distress, Lungs Clear, Normal Breath Sounds, No Accessory Muscle Use, Chest Non-Tender Cardiovascular: Normal Peripheral Pulses, Regular Rate, Rhythm, No Gallop, No JVD, No Murmur, No Rub. No: No Edema Peripheral Pulses: 2+: Radial (L), Radial (R), Dorsalis Pedis (L), Dorsalis Pedis (R) GI/Abdominal: Normal Bowel Sounds, Soft, Non-Tender. No: No Distention, No Abnormal Bruit, No Mass, Pelvis Stable (Female) Exam: Deferred Rectal (Female) Exam: Deferred Back Exam: Normal Inspection, Full Range of Motion. No: Muscle Spasm, Paraspinal Tenderness, Vertebral Tenderness Extremities: Normal Range of Motion, Normal Capillary Refill, Pedal Edema (T race, bilaterally) Neurological: Alert, Oriented, CN II-XII Intact, Normal Cognition, No Motor/Sensory Deficits Psychiatric: Normal Affect, Normal Mood Skin Exam: Warm, Dry, Intact, Normal Color, No Rash. No: Cyanosis, Jaundice, Mottled, Pallor Lymphatic: No Adenopathy #1 Interpretation EKG Date: 07/08/21 Time: 11:56 Rhythm: NSR Rate (Beats/Min): 75 [place]: LAD-Left Willcox Deviation P-Wave: Present QRS: Normal ST-T: Normal QT: Prolonged (Borderline .497) [place]/PQ Interval: 0.16 Comparison: NA - No Prior EKG EKG Interpretation Comments: NSR; T-wave inversion II, III, aVF Course - Vital Signs Last Recorded V/S: Last Vital Signs Temp 97.5 F 07/08/21 11:55 Pulse 73 07/08/21 11:55 Resp 20 07/08/21 11:55 BP 178/84 H 07/08/21 11:55 Pulse Ox 95 07/08/21 11:55 - Orders/Labs/Meds Labs: Laboratory Tests 07/08/21 07/08/21 07/08/21 Range/Units 12:05 12:05 12:05 WBC 6.5 (5.0-10.0) 10^3/uL RBC 4.40 (4.2-5.4) 10^6/uL Hgb 15.3 D (12.0-16.0) g/dL Hct 45.6 (37.0-47.0) % MCV 103.6 H D (80-100) fL MCH 34.8 H (27.0-34.0) pg MCHC 33.6 (33.0-35.0) g/dL Plt Count 208 (150-450) 10^3/uL Neut % (Auto) 70.2 (42.2-75.2) % Lymph % (Auto) 19.9 L (20.5-50.1) % [place] % (Auto) 8.2 H (2-8) % Eos % (Auto) 1.2 (1.0-3.0) % Baso % (Auto) 0.5 (0.0-1.0) % Sodium 145 (136-145) mmol/L Potassium 4.0 (3.5-5.1) mmol/L Chloride 106 (98-107) mmol/L Carbon Dioxide 26 (21-32) mmol/L Anion Gap 17.0 H (7-13) mEq/L BUN 8 (7-18) mg/dL Creatinine 0.85 (0.55-1.02) mg/dL Est Cr Clr Drug Dosing 47.31 mL/min Estimated GFR (MDRD) > 60 BUN/Creatinine Ratio 9.4 (No establ ref range) Glucose 88 (70-99) mg/dL POC Glucose (70-99) mg/dL Lactic Acid 2.5 H* (0.4-2.0) mmol/L Calcium 8.6 (8.5-10.1) mg/dL Magnesium 1.9 (1.8-2.4) mg/dL Total Bilirubin 0.6 (0.2-1.0) mg/dL AST 146 H (15-37) U/L ALT 153 H (14-59) U/L Alkaline Phosphatase 163 H (46-116) U/L Troponin I High Sens 7 (<=51) pg/mL C-Reactive Protein < 0.2 (0.0-0.9) mg/dL B-Natriuretic Peptide 29 (0-100) pg/ml Total Protein 5.8 L (6.4-8.2) g/dL Albumin 3.1 L (3.4-5.0) g/dL Globulin 2.7 Albumin/Globulin Ratio 1.15 Urine Color (YELLOW) Urine Appearance (CLEAR) Urine pH (5.0-9.0) Ur Specific [place] (1.005-1.030) Urine Protein (NEGATIVE) Urine Glucose (UA) (NEGATIVE) Urine Ketones (NEGATIVE) Urine Occult Blood (NEGATIVE) Urine Nitrite (NEGATIVE) Urine Bilirubin (NEGATIVE) Urine Urobilinogen (0.2-1.0) mg/dL Ur Leukocyte Esterase (NEGATIVE) Urine RBC (0-5) /HPF Urine WBC (0-5/HPF) /HPF Ur Epithelial Cells (NOT SEEN) /HPF Urine Bacteria (0-FEW/HPF) /HPF Urine Mucus (NOT SEEN) /LPF Urine Opiates Screen (NEGATIVE) Ur Oxycodone Screen (NEGATIVE) Urine Methadone Screen (NEGATIVE) Ur Barbiturates Screen (NEGATIVE) U Tricyclic Antidepress (NEGATIVE) Ur Phencyclidine Scrn (NEGATIVE) Ur Amphetamine Screen (NEGATIVE) U Methamphetamines Scrn (NEGATIVE) Urine MDMA Screen (NEGATIVE) U Benzodiazepines Scrn (NEGATIVE) Urine Cocaine Screen (NEGATIVE) U Marijuana (THC) Screen (NEGATIVE) Ethyl Alcohol < 3 (0) mg/dL 07/08/21 07/08/21 07/08/21 Range/Units 12:57 12:57 13:00 WBC (5.0-10.0) 10^3/uL RBC (4.2-5.4) 10^6/uL Hgb (12.0-16.0) g/dL Hct (37.0-47.0) % MCV (80-100) fL MCH (27.0-34.0) pg MCHC (33.0-35.0) g/dL Plt Count (150-450) 10^3/uL Neut % (Auto) (42.2-75.2) % Lymph % (Auto) (20.5-50.1) % [place] % (Auto) (2-8) % Eos % (Auto) (1.0-3.0) % Baso % (Auto) (0.0-1.0) % Sodium (136-145) mmol/L Potassium (3.5-5.1) mmol/L Chloride (98-107) mmol/L Carbon Dioxide (21-32) mmol/L Anion Gap (7-13) mEq/L BUN (7-18) mg/dL Creatinine (0.55-1.02) mg/dL Est Cr Clr Drug Dosing mL/min Estimated GFR (MDRD) BUN/Creatinine Ratio (No establ ref range) Glucose (70-99) mg/dL POC Glucose 105 H (70-99) mg/dL Lactic Acid (0.4-2.0) mmol/L Calcium (8.5-10.1) mg/dL Magnesium (1.8-2.4) mg/dL Total Bilirubin (0.2-1.0) mg/dL AST (15-37) U/L ALT (14-59) U/L Alkaline Phosphatase (46-116) U/L Troponin I High Sens (<=51) pg/mL C-Reactive Protein (0.0-0.9) mg/dL B-Natriuretic Peptide (0-100) pg/ml Total Protein (6.4-8.2) g/dL Albumin (3.4-5.0) g/dL Globulin Albumin/Globulin Ratio Urine Color Yellow (YELLOW) Urine Appearance Slightly cloudy (CLEAR) Urine pH 8.5 (5.0-9.0) Ur Specific [place] 1.020 (1.005-1.030) Urine Protein Trace H (NEGATIVE) Urine Glucose (UA) Negative (NEGATIVE) Urine Ketones Negative (NEGATIVE) Urine Occult Blood Negative (NEGATIVE) Urine Nitrite Negative (NEGATIVE) Urine Bilirubin Negative (NEGATIVE) Urine Urobilinogen 0.2 (0.2-1.0) mg/dL Ur Leukocyte Esterase Trace H (NEGATIVE) Urine RBC Not seen (0-5) /HPF Urine WBC 5-10 H (0-5/HPF) /HPF Ur Epithelial Cells Rare (NOT SEEN) /HPF Urine Bacteria Many H (0-FEW/HPF) /HPF Urine Mucus Not seen (NOT SEEN) /LPF Urine Opiates Screen Negative (NEGATIVE) Ur Oxycodone Screen Negative (NEGATIVE) Urine Methadone Screen Negative (NEGATIVE) Ur Barbiturates Screen Negative (NEGATIVE) U Tricyclic Antidepress Negative (NEGATIVE) Ur Phencyclidine Scrn Negative (NEGATIVE) Ur Amphetamine Screen Negative (NEGATIVE) U Methamphetamines Scrn Negative (NEGATIVE) Urine MDMA Screen Negative (NEGATIVE) U Benzodiazepines Scrn Negative (NEGATIVE) Urine Cocaine Screen Negative (NEGATIVE) U Marijuana (THC) Screen Negative (NEGATIVE) Ethyl Alcohol (0) mg/dL Meds: Medications Discontinued Medications Generic Name Dose Route Start Last Admin Trade Name Gilbertoq PRN Reason Stop Dose Admin Lactated Ringer's 1,000 mls @ 999 mls/hr 07/08/21 12:56 07/08/21 13:33 Ringers, Lactated IV 07/08/21 13:56 999 mls/hr .BOLUS ONE Administration Levetiracetam 500 mg 07/08/21 14:07 07/08/21 14:14 Levetiracetam 500 Mg Tab PO 07/08/21 14:08 500 mg BID ONE Administration Trimethoprim/Sulfamethoxazole 1 tab 07/08/21 14:10 07/08/21 14:14 Sulfamethoxazole/Trimethoprim 800-160 Mg Tab PO 07/08/21 14:11 1 tab ONETIME ONE Administration - Re-Assessments/Exams Free Text/Narrative Re-Assessment/Exam: 07/08/[address] obtained. LR 1L bolus initiated. Case discussed with Dr. Ron, neurologist at [facility], who states the patient should be started on levetiracetam 500mg BID. He kindly agreed to see the patient in one week, but states she should follow up with any neurologist regarding today's ED visit. Bactrim DS administered for UTI. Findings of examination, lab work, and imaging reviewed with patient. Will treat UTI with Bactrim DS and seizure-like activity with Keppra BID, per Dr. Ron. Discussed supportive cares for UTI. Red flag signs and symptoms which would warrant reevaluation reviewed. Patient verbalized understanding and agreement with the plan of care. Departure - Departure Time of Disposition: 14:04 Disposition: Home, Self-Care 01 Condition: Fair Clinical Impression: Dehydration, Seizure-like activity, Elevated liver enzymes, Macrocytic anemia Urinary tract infection Qualifiers: Urinary tract infection type: acute cystitis Hematuria presence: without hematuria Qualified Code(s): N30.00 - Acute cystitis without hematuria - Discharge Information *PRESCRIPTION DRUG MONITORING PROGRAM REVIEWED*: Not Applicable *COPY OF PRESCRIPTION DRUG MONITORING REPORT IN PATIENT ZOE: Not Applicable Instructions: Urinary Tract Infection, Adult, Dehydration, Adult Referrals: iVral Kahn, ALESSANDRO [Primary Care Provider] - Forms: ED Department Discharge Additional Instructions: Rx: levetiracetam Rx: Bactrim DS 1.) Follow up with Neurology in 7-10 days regarding today's visit. Dr. Ron, neurologist, has been notified of your case. You can call his office at [phone] to schedule an appointment. 2.) Take your antibiotic to completion, even as symptoms improve. 3.) Drink plenty of water to stay hydrated and keep bladder/kidney's flushed out. 4.) Follow up with your primary care provider, or return to the emergency department, with any return of symptoms. Sepsis Event Note (ED) - Evaluation Sepsis Screening Result: No Definite Risk
[2021-07-08 12:40] LABS: CHLORIDE,CL 106 mmol/L (98-107); SODIUM,NA 145 mmol/L (136-145)
[2021-07-08] MEDS ORDERED: Lactated Ringers 1,000 ML IV ONE (12:56)
--- NOTE | 2021-07-08 13:37 | CT ---
EXAMINATION: Head wo Cont SEX: Female AGE: 75 years CLINICAL HISTORY: 75-year-old female emergency department with seizure like activity. Comparison exam to December 2020 (for headache) revealed "no appreciable change since October 2017 (bilateral frontal atrophy and vague hypodensities periventricular white matter unchanged). Scan technique: Volume acquisition of data emergency unenhanced CT scan of the head and brain obtained with patient lying supine on the Siemens multislice scanner [place], [place]. All data archived in the PACS system for storage, reformatting axial/sagittal/coronal planes and study (/brain windows). Interpretation: 1. Bilateral frontal lobe atrophy and scattered microvascular ischemic changes periventricular white matter. 2. Small new lacunar infarct thalamus, basal ganglia posteriorly, on the left. 3. No new supratentorial or posterior fossa mass lesion. 4. Uniformly thick bony calvarium. Symmetric clear pneumatization of the mastoid and paranasal sinuses. 5. No sign of skull fracture, brain contusion or epidural/subdural hematoma. 6. No sign of acute intracerebral, intraventricular or subarachnoid bleed. 7. No abnormal extracerebral/intracranial epidural or subdural hematomas. 8. Cerebellum and brainstem unremarkable. CONCLUSION: Chronic microvascular ischemic changes (tiny new lacunar infarct thalamus on the left). Atrophy. No new evidence intracranial mass, hydrocephalus or bleed.
[2021-07-08] MEDS ORDERED: levETIRAcetam 500 MG Tab PO ONE (14:07)
[2021-07-08] MEDS ORDERED: Sulfamethoxazole/Trimethoprim 800-160 MG Tab PO ONE (14:10)
[2021-07-08 14:32] LABS: AMPHETAMINES,URINE NEGATIVE (NEGATIVE); BARBITURATES,URINE NEGATIVE (NEGATIVE); BENZODIAZEPINE,URINE NEGATIVE (NEGATIVE); MDMA (ECSTASY), URINE NEGATIVE (NEGATIVE); METHADONE,URINE NEGATIVE (NEGATIVE); METHAMPHETAMINES,URINE NEGATIVE (NEGATIVE); OPIATES,URINE NEGATIVE (NEGATIVE); OXYCODONE,URINE NEGATIVE (NEGATIVE); PHENCYCLIDINE,URINE NEGATIVE (NEGATIVE); TCA,URINE NEGATIVE (NEGATIVE)
== END 2021-07-08 14:43 | disposition home or self-care (01) ==
LOC: DL.ED 11:50
DX: R56.9 Unspecified convulsions (principal); N30.00 Acute cystitis without hematuria; D53.9 Nutritional anemia, unspecified; E86.0 Dehydration; R74.8 Abnormal levels of other serum enzymes; E66.9 Obesity, unspecified; Z88.5 Allergy status to narcotic agent; Z79.899 Other long term (current) drug therapy; Z68.36 Body mass index [BMI] 36.0-36.9, adult; R06.02 Shortness of breath
CPT/HCPCS: 36415; 70450; 80053; 80305; 80307; 81001; 82947; 83605; 83735; 83880; 84484; 85025; 86140; 87086; 87088; 87186; 93005; 99284; A9270; J7120

== ENCOUNTER 2021-07-20 14:40 | Observation (INO) | payer MEDICARE, MEDICAID ==
--- NOTE | 2021-07-20 15:17 | CT ---
PROCEDURE INFORMATION: Exam: CT Head Without Contrast Exam date and time: 07/20/2021 2:52 PM Age: 76 years old Clinical indication: Other: Difficulty speaking; Additional info: Altered mental status TECHNIQUE: Imaging protocol: Computed tomography of the head without contrast. Radiation optimization: All CT scans at this facility use at least one of these dose optimization techniques: automated exposure control; mA and/or kV adjustment per patient size (includes targeted exams where dose is matched to clinical indication); or iterative reconstruction. Other technique: STROKE PROTOCOL was implemented. COMPARISON: CT Head wo Cont 07/08/2021 1:13 PM FINDINGS: Brain: There is mild amount of scattered areas of hypoattenuation of the supratentorial white matter, most likely secondary to microvascular ischemic changes. No acute intracranial hemorrhage. Cerebral ventricles: No ventriculomegaly. Paranasal sinuses: Visualized sinuses are unremarkable. No fluid levels. Mastoid air cells: Visualized mastoid air cells are well aerated. Bones/joints: Unremarkable. No acute fracture. Soft tissues: Unremarkable. IMPRESSION: No acute intracranial process. ASSESSMENT: ASPECTS ([place] Stroke Program Early CT Score) is 10.
[2021-07-20 15:33] LABS: ANION GAP 24.4 mEq/L (7-13); CHLORIDE,CL 102 mmol/L (98-107); SODIUM,NA 142 mmol/L (136-145)
--- NOTE | 2021-07-20 16:19 | EDM.PDOC ---
Scribed by Shannon Gregorio 07/20/21 1528 for Julia Koroma NP ED HPI GENERAL MEDICAL PROBLEM - General Chief Complaint: General Stated Complaint: IN BY AMBULANCE Time Seen by Provider: 07/20/21 14:40 Source of Information: Reports: Patient, EMS, EMS Notes Reviewed, RN, RN Notes Reviewed History Limitations: Reports: No Limitations - History of Present Illness INITIAL COMMENTS - FREE TEXT/NARRATIVE: Patient is a 76-year-old female who presents to ER per [facility] with vague complaints. She has a green/purple healing bruie and abrasion to center of forehead. States she is unsure what happened. She is rubbing her stomach and states she is hungry. Denies nausea, vomiting or diarrhea. Denies urologic symptoms. Onset: Gradual Location: Reports: Generalized Severity: Severe Improves with: Reports: None Worsens with: Reports: None Associated Symptoms: Reports: No Other Symptoms - Related Data Allergies Allergy/AdvReac Type Severity Reaction Status Date / Time codeine Allergy Nausea and Verified 07/08/21 12:03 Vomiting Home Meds: Home Meds Gabapentin [Neurontin] 800 mg PO DAILY 12/07/16 [History] Calcium Carbonate [Calcium] 500 mg PO ASDIRECTED 03/30/17 [History] Cyanocobalamin (Vitamin B-12) [Vitamin B-12] 100 mcg PO ASDIRECTED 03/30/17 [History] DULoxetine [Cymbalta] 30 mg PO DAILY 03/30/17 [History] DULoxetine [Cymbalta] 60 mg PO DAILY 03/30/17 [History] Magnesium Amino Acid Chelate [Magnesium] 100 mg PO ASDIRECTED 03/30/17 [History] Multivitamin [Multivitamins] 1 each PO ASDIRECTED 03/30/17 [History] [place]-3 Acid Ethyl Esters 1 gm PO ASDIRECTED 03/30/17 [History] Rizatriptan Benzoate [Maxalt] 5 mg PO ASDIRECTED PRN 03/30/17 [History] Acetaminophen [Tylenol] 650 mg PO Q4H PRN #0 tablet 03/31/17 [Rx] Baclofen [Lioresal] 10 mg PO TID PRN #0 03/31/17 [Rx] Docusate Sodium/Sennosides [Senna Plus] 1 tab PO BEDTIME PRN #0 tablet 03/31/17 [Rx] Polyethylene Glycol 3350 [MiraLAX] 17 gm PO DAILY PRN #0 packet 03/31/17 [Rx] Past Medical History - Past Health History Medical/Surgical History: Denies Medical/Surgical History HEENT History: Reports: None Other HEENT History: cataract surgery bilaterally Cardiovascular History: Reports: None Respiratory History: Reports: None Gastrointestinal History: Reports: None Genitourinary History: Reports: None Other Genitourinary History: stress incontinence [employer] History: Reports: None Other [employer] History: nvd x8 Musculoskeletal History: Reports: Arthritis, Fibromyalgia Neurological History: Reports: Migraines Psychiatric History: Reports: None Endocrine/Metabolic History: Reports: Obesity/BMI 30+ Other Endocrine/Metabolic History: impaired glucose tolerance Hematologic History: Reports: None Immunologic History: Reports: None Oncologic (Cancer) History: Reports: None Dermatologic History: Reports: None - Infectious Disease History Infectious Disease History: Reports: Chicken Pox, Measles, Mumps - Past Surgical History HEENT Surgical History: Reports: Adenoidectomy, Tonsillectomy GI Surgical History: Reports: Bariatric Procedure, Hernia, Abdominal Musculoskeletal Surgical History: Reports: Other (See Below) Other Musculoskeletal Surgeries/Procedures:: bilateral knee replacement Social & Family History - Family History Family Medical History: No Pertinent Family History OBGYN: Reports: - Caffeine Use Caffeine Use: Reports: None - Living Situation & Occupation Living situation: Reports: with Family ED ROS GENERAL - Review of Systems Review Of Systems: Comprehensive ROS is negative, except as noted in HPI. ED EXAM, GENERAL - Physical Exam Exam: See Below Exam Limited By: No Limitations General Appearance: Anxious, Mild Distress Eye Exam: Bilateral Eye: EOMI, Normal Inspection, PERRL (2 sluggish) Ears: Normal External Exam, Normal Canal, Hearing Grossly Normal, Normal TMs Nose: Normal Inspection, Normal Mucosa, No Blood Throat/Mouth: Normal Inspection, Normal Lips, Normal Teeth, Normal Gums, Normal Oropharynx, Normal Voice, No Airway Compromise Head: Atraumatic, Normocephalic Neck: Normal Inspection, Supple, Non-Tender, Full Range of Motion Respiratory/Chest: No Respiratory Distress Cardiovascular: Normal Peripheral Pulses, Regular Rate, Rhythm, No Edema, No Gallop, No JVD, No Murmur, No Rub GI/Abdominal: Tender (Female) Exam: Deferred Rectal (Female) Exam: Deferred Back Exam: Normal Inspection, Full Range of Motion, NT Extremities: Normal Inspection, Normal Range of Motion, Non-Tender, Normal Capillary Refill, No Pedal Edema Neurological: Alert, Disoriented (to month) Psychiatric: Anxious, Other (poor eye contact) Skin Exam: Warm, Dry, Intact, Normal Color, No Rash #1 Interpretation EKG Date: 07/20/21 Time: 14:53 Rhythm: Other (sinus rhythm) Rate (Beats/Min): 77 EKG Interpretation Comments: Left axis deviation. Low voltage, precordial leads. Abnormal R-wave progression, late transition. Course - Vital Signs Last Recorded V/S: Last Vital Signs Temp 97.3 F 07/20/21 14:40 Pulse 72 07/20/21 14:40 Resp 16 07/20/21 14:40 BP 157/80 H 07/20/21 14:40 Pulse Ox 99 07/20/21 14:40 - Orders/Labs/Meds Orders: Active Orders 24 hr Category Date Time Status CORONAVIRUS COVID-19 BONILLA [MOLEC] Stat Lab 07/20/21 15:10 Received CULTURE BLOOD [BC] Stat Lab 07/20/21 14:56 Received CULTURE BLOOD [BC] Stat Lab 07/20/21 15:01 Received CULTURE URINE [RM] Stat Lab 07/20/21 15:19 Received Blood Culture x2 Reflex Set [OM.PC] Stat Oth 07/20/21 14:38 Ordered Isolation [COMM] Routine Oth 07/20/21 14:39 Active Labs: Laboratory Tests 07/20/21 07/20/21 07/20/21 Range/Units 15:01 15:01 15:01 WBC 7.5 (5.0-10.0) 10^3/uL RBC 4.90 (4.2-5.4) 10^6/uL Hgb 17.4 H D (12.0-16.0) g/dL Hct 49.4 H (37.0-47.0) % MCV 100.8 H (80-100) fL MCH 35.5 H (27.0-34.0) pg MCHC 35.2 H (33.0-35.0) g/dL Plt Count 234 (150-450) 10^3/uL Neut % (Auto) 69.0 (42.2-75.2) % Lymph % (Auto) 20.2 L (20.5-50.1) % Wells % (Auto) 10.1 H (2-8) % Eos % (Auto) 0.3 L (1.0-3.0) % Baso % (Auto) 0.4 (0.0-1.0) % PT 10.0 (9.0-12.0) SEC INR 1.0 (0.9-1.2) Sodium 142 (136-145) mmol/L Potassium 4.4 (3.5-5.1) mmol/L Chloride 102 (98-107) mmol/L Carbon Dioxide 20 L (21-32) mmol/L Anion Gap 24.4 H (7-13) mEq/L BUN 15 (7-18) mg/dL Creatinine 0.97 (0.55-1.02) mg/dL Est Cr Clr Drug Dosing TNP Estimated GFR (MDRD) 56 BUN/Creatinine Ratio 15.5 (No establ ref range) Glucose 109 H (70-99) mg/dL Lactic Acid (0.4-2.0) mmol/L Calcium 9.3 (8.5-10.1) mg/dL Total Bilirubin 0.8 (0.2-1.0) mg/dL AST 95 H (15-37) U/L ALT 138 H (14-59) U/L Alkaline Phosphatase 160 H (46-116) U/L Troponin I High Sens 8 (<=51) pg/mL Total Protein 6.8 (6.4-8.2) g/dL Albumin 3.8 (3.4-5.0) g/dL Globulin 3.0 Albumin/Globulin Ratio 1.3 Urine Color (YELLOW) Urine Appearance (CLEAR) Urine pH (5.0-9.0) Ur Specific [place] (1.005-1.030) Urine Protein (NEGATIVE) Urine Glucose (UA) (NEGATIVE) Urine Ketones (NEGATIVE) Urine Occult Blood (NEGATIVE) Urine Nitrite (NEGATIVE) Urine Bilirubin (NEGATIVE) Urine Urobilinogen (0.2-1.0) mg/dL Ur Leukocyte Esterase (NEGATIVE) U Hyaline Cast (Auto) Urine RBC (0-5) /HPF Urine WBC (0-5/HPF) /HPF Ur Epithelial Cells (NOT SEEN) /HPF Urine Bacteria (0-FEW/HPF) /HPF Urine Mucus (NOT SEEN) /LPF Urine Yeast (NOT SEEN) /HPF Ethyl Alcohol < 3 (0) mg/dL 07/20/21 07/20/21 Range/Units 15:01 15:19 WBC (5.0-10.0) 10^3/uL RBC (4.2-5.4) 10^6/uL Hgb (12.0-16.0) g/dL Hct (37.0-47.0) % MCV (80-100) fL MCH (27.0-34.0) pg MCHC (33.0-35.0) g/dL Plt Count (150-450) 10^3/uL Neut % (Auto) (42.2-75.2) % Lymph % (Auto) (20.5-50.1) % Wells % (Auto) (2-8) % Eos % (Auto) (1.0-3.0) % Baso % (Auto) (0.0-1.0) % PT (9.0-12.0) SEC INR (0.9-1.2) Sodium (136-145) mmol/L Potassium (3.5-5.1) mmol/L Chloride (98-107) mmol/L Carbon Dioxide (21-32) mmol/L Anion Gap (7-13) mEq/L BUN (7-18) mg/dL Creatinine (0.55-1.02) mg/dL Est Cr Clr Drug Dosing Estimated GFR (MDRD) BUN/Creatinine Ratio (No establ ref range) Glucose (70-99) mg/dL Lactic Acid 1.9 (0.4-2.0) mmol/L Calcium (8.5-10.1) mg/dL Total Bilirubin (0.2-1.0) mg/dL AST (15-37) U/L ALT (14-59) U/L Alkaline Phosphatase (46-116) U/L Troponin I High Sens (<=51) pg/mL Total Protein (6.4-8.2) g/dL Albumin (3.4-5.0) g/dL Globulin Albumin/Globulin Ratio Urine Color Dark yellow (YELLOW) Urine Appearance Slightly cloudy (CLEAR) Urine pH 6.0 (5.0-9.0) Ur Specific [place] >= 1.030 (1.005-1.030) Urine Protein 30 H (NEGATIVE) Urine Glucose (UA) Negative (NEGATIVE) Urine Ketones >=160 H (NEGATIVE) Urine Occult Blood Negative (NEGATIVE) Urine Nitrite Negative (NEGATIVE) Urine Bilirubin Moderate H (NEGATIVE) Urine Urobilinogen 0.2 (0.2-1.0) mg/dL Ur Leukocyte Esterase Small H (NEGATIVE) U Hyaline Cast (Auto) Few Urine RBC 0-5 (0-5) /HPF Urine WBC 10-20 H (0-5/HPF) /HPF Ur Epithelial Cells Many H (NOT SEEN) /HPF Urine Bacteria Few (0-FEW/HPF) /HPF Urine Mucus Moderate H (NOT SEEN) /LPF Urine Yeast Few H (NOT SEEN) /HPF Ethyl Alcohol (0) mg/dL - Radiology Interpretation Free Text/Narrative:: Head CT wo contrast: Name: NO FREGOSO Age: 76Years F Date: 07/20/2021 SSN: -- : [id number] Study: CT HEAD WO CONT Requesting Physician: Julia Koroma Images: [id number] Addl Studies: Provided Clinical History: altered mental status Contrast: Without Contrast Medium: Contrast Amount: Contrast Method: Page 1 of 2 PROCEDURE INFORMATION: Exam: CT Head Without Contrast Exam date and time: 07/20/2021 2:52 PM Age: 76 years old Clinical indication: Other: Difficulty speaking; Additional info: Altered mental status TECHNIQUE: Imaging protocol: Computed tomography of the head without contrast. Radiation optimization: All CT scans at this facility use at least one of these dose optimization techniques: automated exposure control; mA and/or kV adjustment per patient size (includes targeted exams where dose is matched to clinical indication); or iterative reconstruction. Other technique: STROKE PROTOCOL was implemented. COMPARISON: CT Head wo Cont 07/08/2021 1:13 PM FINDINGS: Brain: There is mild amount of scattered areas of hypoattenuation of the supratentorial white matter, most likely secondary to microvascular ischemic changes. No acute intracranial hemorrhage. Cerebral ventricles: No ventriculomegaly. Paranasal sinuses: Visualized sinuses are unremarkable. No fluid levels. Mastoid air cells: Visualized mastoid air cells are well aerated. Bones/joints: Unremarkable. No acute fracture. Soft tissues: Unremarkable. IMPRESSION: No acute intracranial process. ASSESSMENT: ASPECTS ([place] Stroke Program Early CT Score) is 10. Thank you for allowing us to participate in the care of your patient. Dictated and Authenticated by: Osvaldo Washington MD 07/20/2021 3:17 PM Central Time ([place] & [place]) See rad report - Re-Assessments/Exams Free Text/Narrative Re-Assessment/Exam: 07/20/21 16:15 Discussed patient case with Dr. Samuel who agreed to accept the patient for observation admission. Departure - Departure Time of Disposition: 16:15 Disposition: Refer to Observation Condition: Fair Clinical Impression: Altered mental status Qualifiers: Altered mental status type: unspecified Qualified Code(s): R41.82 - Altered mental status, unspecified - Discharge Information *PRESCRIPTION DRUG MONITORING PROGRAM REVIEWED*: No *COPY OF PRESCRIPTION DRUG MONITORING REPORT IN PATIENT ZOE: No Forms: ED Department Discharge Sepsis Event Note (ED) - Focused Exam Vital Signs: Vital Signs Temp Pulse Resp BP Pulse Ox 07/20/21 14:40 97.3 F 72 16 157/80 H 99 - My Orders Last 24 Hours: My Active Orders 07/20/21 14:38 Blood Culture x2 Reflex Set [OM.PC] Stat 07/20/21 14:39 Isolation [COMM] Routine 07/20/21 14:56 CULTURE BLOOD [BC] Stat 07/20/21 15:01 CULTURE BLOOD [BC] Stat 07/20/21 15:10 CORONAVIRUS COVID-19 BONILLA [MOLEC] Stat 07/20/21 15:19 CULTURE URINE [RM] Stat - Assessment/Plan Last 24 Hours: My Active Orders 07/20/21 14:38 Blood Culture x2 Reflex Set [OM.PC] Stat 07/20/21 14:39 Isolation [COMM] Routine 07/20/21 14:56 CULTURE BLOOD [BC] Stat 07/20/21 15:01 CULTURE BLOOD [BC] Stat 07/20/21 15:10 CORONAVIRUS COVID-19 BONILLA [MOLEC] Stat 07/20/21 15:19 CULTURE URINE [RM] Stat I have read and agree with the documentation that has been completed regarding this visit. By signing this record, I attest that the documentation was completed in my physical presence and is an accurate record of the encounter.
[2021-07-20] MEDS ORDERED: Sodium Chloride 0.9% 10 ML Syringe FLUSH PRN (18:30)
[2021-07-20] MEDS ORDERED: Sodium Chloride 0.9% 1,000 ML IV SCH (18:30)
--- NOTE | 2021-07-20 19:03 | PCM.HP ---
H&P History of Present Illness - General Date of Service: 07/20/21 Admit Problem/Dx: Admission Diagnosis/Problem Admission Diagnosis/Problem Altered mental status Source of Information: Patient, Family (daughter) - History of Present Illness Initial Comments - Free Text/Narative: 76-year-old with a history of possible seizure disorder, hypothyroidism Has seen Dr. Ron in the past and has been on Neurontin the patient was not feeling well, had non specific complaints of weakness Called the daughter who noticed generalized weakness and shakiness of upper extremities the patient was able to get up from a lying position and with the help of the daughter and a cane she was able to slowly ambulate and went to the daughter's place. Later since the patient's condition did not Improve ambulance was called The patient fell about 10 days ago has bruise on the forehead no other recent injury No chest pain, no shortness of breath, The patient has a history of "migraines" frequent headaches but had no such complaints today No sob, no cp, was asking about abdominal pain she says she is hungry - Related Data Allergies/Adverse Reactions: Allergies Allergy/AdvReac Type Severity Reaction Status Date / Time codeine Allergy Nausea and Verified 07/08/21 12:03 Vomiting Home Medications: Home Meds Gabapentin [Neurontin] 800 mg PO TID 12/07/16 [History] Calcium Carbonate [Calcium] 500 mg PO ASDIRECTED 03/30/17 [History] Cyanocobalamin (Vitamin B-12) [Vitamin B-12] 100 mcg PO ASDIRECTED 03/30/17 [History] DULoxetine [Cymbalta] 30 mg PO DAILY 03/30/17 [History] DULoxetine [Cymbalta] 60 mg PO DAILY 03/30/17 [History] Magnesium Amino Acid Chelate [Magnesium] 100 mg PO ASDIRECTED 03/30/17 [History] Multivitamin [Multivitamins] 1 each PO ASDIRECTED 03/30/17 [History] Bayard-3 Acid Ethyl Esters 1 gm PO ASDIRECTED 03/30/17 [History] Acetaminophen [Tylenol] 650 mg PO Q4H PRN #0 tablet 03/31/17 [Rx] Docusate Sodium/Sennosides [Senna Plus] 1 tab PO BEDTIME PRN #0 tablet 03/31/17 [Rx] Polyethylene Glycol 3350 [MiraLAX] 17 gm PO DAILY PRN #0 packet 03/31/17 [Rx] Levothyroxine [Synthroid] 50 mcg PO ACBREAKFAST 07/20/21 [History] buPROPion HCL [Bupropion Xl] 300 mg PO DAILY 07/20/21 [History] Past Medical History - Past Health History Medical/Surgical History: Denies Medical/Surgical History HEENT History: Reports: None Other HEENT History: cataract surgery bilaterally Cardiovascular History: Reports: None Respiratory History: Reports: None Gastrointestinal History: Reports: None Genitourinary History: Reports: None Other Genitourinary History: stress incontinence MAINTENANCE CHIEF History: Reports: None Other OB/BYN History: nvd x8 Musculoskeletal History: Reports: Arthritis, Fibromyalgia Neurological History: Reports: Migraines Psychiatric History: Reports: None Endocrine/Metabolic History: Reports: Obesity/BMI 30+ Other Endocrine/Metabolic History: impaired glucose tolerance Hematologic History: Reports: None Immunologic History: Reports: None Oncologic (Cancer) History: Reports: None Dermatologic History: Reports: None - Infectious Disease History Infectious Disease History: Reports: Chicken Pox, Measles, Mumps - Past Surgical History HEENT Surgical History: Reports: Adenoidectomy, Tonsillectomy GI Surgical History: Reports: Bariatric Procedure, Hernia, Abdominal Musculoskeletal Surgical History: Reports: Other (See Below) Other Musculoskeletal Surgeries/Procedures:: bilateral knee replacement Social & Family History - Family History Family Medical History: No Pertinent Family History OBGYN: Reports: - Caffeine Use Caffeine Use: Reports: None - Living Situation & Occupation Living situation: Reports: with Family H&P Review of Systems - Review of Systems: Review Of Systems: See Below General: Reports: Malaise, Weakness. Denies: Fever, Chills Pulmonary: Denies: Shortness of Breath Cardiovascular: Denies: Chest Pain, Edema Gastrointestinal: Reports: Abdominal Pain ("hunger") Genitourinary: Denies: Dysuria Psychiatric: Reports: Confusion Neurological: Reports: Confusion, Tremors, Difficulty Walking, Weakness, Other (upper extremity tremors). Denies: Trouble Speaking Exam - Exam Exam: See Below - Vital Signs Vital Signs: Last Vital Signs Temp 97.7 F 07/20/21 17:50 Pulse 68 07/20/21 17:50 Resp 20 07/20/21 17:50 BP 125/49 L 07/20/21 17:50 Pulse Ox 100 07/20/21 17:50 Weight: 166 lb - Exam General: Alert, Oriented Neck: Supple Lungs: Clear to Auscultation, Normal Respiratory Effort Cardiovascular: Regular Rate, Regular Rhythm GI/Abdominal Exam: Normal Bowel Sounds, Soft, Non-Tender Extremities: No Pedal Edema Skin: Warm, Dry, Other (forehead bruise) Neurological: Cranial Nerves Intact, Strength Equal Bilateral. No: Focal Deficit Neuro Extensive - Mental Status: Alert, Oriented x3, Normal Mood/Affect Psychiatric: Alert, Normal Affect, Normal Mood - Patient Data Lab Results Last 24 hrs: Laboratory Results - last 24 hr 07/20/21 07/20/21 07/20/21 Range/Units 15:01 15:01 15:01 WBC 7.5 (5.0-10.0) 10^3/uL RBC 4.90 (4.2-5.4) 10^6/uL Hgb 17.4 H D (12.0-16.0) g/dL Hct 49.4 H (37.0-47.0) % MCV 100.8 H (80-100) fL MCH 35.5 H (27.0-34.0) pg MCHC 35.2 H (33.0-35.0) g/dL Plt Count 234 (150-450) 10^3/uL Neut % (Auto) 69.0 (42.2-75.2) % Lymph % (Auto) 20.2 L (20.5-50.1) % Faulk % (Auto) 10.1 H (2-8) % Eos % (Auto) 0.3 L (1.0-3.0) % Baso % (Auto) 0.4 (0.0-1.0) % PT 10.0 (9.0-12.0) SEC INR 1.0 (0.9-1.2) Sodium 142 (136-145) mmol/L Potassium 4.4 (3.5-5.1) mmol/L Chloride 102 (98-107) mmol/L Carbon Dioxide 20 L (21-32) mmol/L Anion Gap 24.4 H (7-13) mEq/L BUN 15 (7-18) mg/dL Creatinine 0.97 (0.55-1.02) mg/dL Est Cr Clr Drug Dosing TNP Estimated GFR (MDRD) 56 BUN/Creatinine Ratio 15.5 (No establ ref range) Glucose 109 H (70-99) mg/dL Lactic Acid (0.4-2.0) mmol/L Calcium 9.3 (8.5-10.1) mg/dL Total Bilirubin 0.8 (0.2-1.0) mg/dL AST 95 H (15-37) U/L ALT 138 H (14-59) U/L Alkaline Phosphatase 160 H (46-116) U/L Troponin I High Sens 8 (<=51) pg/mL Total Protein 6.8 (6.4-8.2) g/dL Albumin 3.8 (3.4-5.0) g/dL Globulin 3.0 Albumin/Globulin Ratio 1.3 Urine Color (YELLOW) Urine Appearance (CLEAR) Urine pH (5.0-9.0) Ur Specific [place] (1.005-1.030) Urine Protein (NEGATIVE) Urine Glucose (UA) (NEGATIVE) Urine Ketones (NEGATIVE) Urine Occult Blood (NEGATIVE) Urine Nitrite (NEGATIVE) Urine Bilirubin (NEGATIVE) Urine Urobilinogen (0.2-1.0) mg/dL Ur Leukocyte Esterase (NEGATIVE) U Hyaline Cast (Auto) Urine RBC (0-5) /HPF Urine WBC (0-5/HPF) /HPF Ur Epithelial Cells (NOT SEEN) /HPF Urine Bacteria (0-FEW/HPF) /HPF Urine Mucus (NOT SEEN) /LPF Urine Yeast (NOT SEEN) /HPF Ethyl Alcohol < 3 (0) mg/dL SARS-CoV-2 RNA (BONILLA) (NEGATIVE) 07/20/21 07/20/21 07/20/21 Range/Units 15:01 15:10 15:19 WBC (5.0-10.0) 10^3/uL RBC (4.2-5.4) 10^6/uL Hgb (12.0-16.0) g/dL Hct (37.0-47.0) % MCV (80-100) fL MCH (27.0-34.0) pg MCHC (33.0-35.0) g/dL Plt Count (150-450) 10^3/uL Neut % (Auto) (42.2-75.2) % Lymph % (Auto) (20.5-50.1) % Faulk % (Auto) (2-8) % Eos % (Auto) (1.0-3.0) % Baso % (Auto) (0.0-1.0) % PT (9.0-12.0) SEC INR (0.9-1.2) Sodium (136-145) mmol/L Potassium (3.5-5.1) mmol/L Chloride (98-107) mmol/L Carbon Dioxide (21-32) mmol/L Anion Gap (7-13) mEq/L BUN (7-18) mg/dL Creatinine (0.55-1.02) mg/dL Est Cr Clr Drug Dosing Estimated GFR (MDRD) BUN/Creatinine Ratio (No establ ref range) Glucose (70-99) mg/dL Lactic Acid 1.9 (0.4-2.0) mmol/L Calcium (8.5-10.1) mg/dL Total Bilirubin (0.2-1.0) mg/dL AST (15-37) U/L ALT (14-59) U/L Alkaline Phosphatase (46-116) U/L Troponin I High Sens (<=51) pg/mL Total Protein (6.4-8.2) g/dL Albumin (3.4-5.0) g/dL Globulin Albumin/Globulin Ratio Urine Color Dark yellow (YELLOW) Urine Appearance Slightly cloudy (CLEAR) Urine pH 6.0 (5.0-9.0) Ur Specific [place] >= 1.030 (1.005-1.030) Urine Protein 30 H (NEGATIVE) Urine Glucose (UA) Negative (NEGATIVE) Urine Ketones >=160 H (NEGATIVE) Urine Occult Blood Negative (NEGATIVE) Urine Nitrite Negative (NEGATIVE) Urine Bilirubin Moderate H (NEGATIVE) Urine Urobilinogen 0.2 (0.2-1.0) mg/dL Ur Leukocyte Esterase Small H (NEGATIVE) U Hyaline Cast (Auto) Few Urine RBC 0-5 (0-5) /HPF Urine WBC 10-20 H (0-5/HPF) /HPF Ur Epithelial Cells Many H (NOT SEEN) /HPF Urine Bacteria Few (0-FEW/HPF) /HPF Urine Mucus Moderate H (NOT SEEN) /LPF Urine Yeast Few H (NOT SEEN) /HPF Ethyl Alcohol (0) mg/dL SARS-CoV-2 RNA (BONILLA) Negative (NEGATIVE) Result Diagrams: 07/20/21 15:01 07/20/21 15:01 Ashvin Results Last 24 hrs: Microbiology 07/20/21 15:10 Influenza Type A Antigen Screen - Final Nasal, Unspecified NEGATIVE INFLUENZA A VIRUS AG REFERENCE RANGE: NEGATIVE Influenza Type B Antigen Screen - Final NEGATIVE INFLUENZA B VIRUS AG REFERENCE RANGE: NEGATIVE - Problem List (1) Altered mental status SNOMED Code(s): 267839807 ICD Code: R41.82 - ALTERED MENTAL STATUS, UNSPECIFIED Status: Acute Current Visit: No Qualifiers: Altered mental status type: unspecified Qualified Code(s): R41.82 - Altered mental status, unspecified (2) Elevated liver enzymes SNOMED Code(s): 924441360 ICD Code: R74.8 - ABNORMAL LEVELS OF OTHER SERUM ENZYMES Status: Acute Current Visit: No (3) Seizure-like activity SNOMED Code(s): 701977223 ICD Code: R56.9 - UNSPECIFIED CONVULSIONS Status: Acute Current Visit: No (4) Urinary tract infection SNOMED Code(s): 07161320 ICD Code: N39.0 - URINARY TRACT INFECTION, SITE NOT SPECIFIED Status: Acute Current Visit: No Qualifiers: Urinary tract infection type: acute cystitis Hematuria presence: without hematuria Qualified Code(s): N30.00 - Acute cystitis without hematuria Problem List Initiated/Reviewed/Updated: Yes Orders Last 24hrs: Active Orders 24 hr Category Date Time Status Admission Diagnosis [ADT] Routine ADT 07/20/21 17:17 Ordered Admission Status [Patient Status] [ADT] Routine ADT 07/20/21 17:17 Active Oxygen Therapy [RC] PRN Care 07/20/21 18:30 Active Peripheral IV Care [RC] . DIRECTED Care 07/20/21 18:30 Active Up With Assistance [RC] ASDIRECTED Care 07/20/21 18:30 Active VTE/DVT Education [RC] PER UNIT ROUTINE Care 07/20/21 18:30 Active Vital Signs [RC] Q4H Care 07/20/21 18:30 Active Regular Diet [DIET] Diet 07/20/21 Breakfast Active AMMONIA VENOUS [CHEM] Routine Lab 07/20/21 18:27 Ordered BASIC METABOLIC PANEL,BMP [CHEM] AM Lab 07/21/21 05:15 Ordered CBC WITH AUTO DIFF [HEME] AM Lab 07/21/21 05:15 Ordered CULTURE BLOOD [BC] Stat Lab 07/20/21 14:56 Received CULTURE BLOOD [BC] Stat Lab 07/20/21 15:01 Received CULTURE URINE [RM] Stat Lab 07/20/21 15:19 Received FOLIC ACID [CHEM] Routine Lab 07/20/21 18:27 Ordered HEPATIC FUNCTION PANEL,HFP [CHEM] AM Lab 07/21/21 05:11 Ordered VITAMIN B12 [CHEM] Routine Lab 07/20/21 18:27 Ordered Acetaminophen [TylenoL] Med 07/20/21 18:24 Active 650 mg PO Q4H PRN Ciprofloxacin [Ciprofloxacin HCl] Med 07/20/21 21:00 Active 250 mg PO BID Cyanocobalamin (Vitamin B12) [Vitamin B12] Med 07/20/21 18:30 Pending 100 mcg PO ASDIRECTED DULoxetine [Cymbalta] Med 07/21/21 09:00 Active 30 mg PO DAILY Gabapentin [Neurontin] Med 07/20/21 21:00 Active 800 mg PO TID Heparin Sodium Med 07/20/21 22:00 Active 5,000 units SUBCUT Q8HR Levothyroxine [Synthroid] Med 07/21/21 06:00 Active 50 mcg PO ACBREAKFAST Multivitamin [Multivitamins] Med 07/20/21 18:30 Pending 1 each PO ASDIRECTED Sodium Chloride 0.9% [Normal Saline] 1,000 ml Med 07/20/21 18:30 Active IV ASDIRECTED Sodium Chloride 0.9% [Saline Flush] Med 07/20/21 18:30 Active 10 ml FLUSH ASDIRECTED PRN buPROPion [Wellbutrin XL] Med 07/21/21 09:00 Active 300 mg PO DAILY Blood Culture x2 Reflex Set [OM.PC] Stat Oth 07/20/21 14:38 Ordered Isolation [COMM] Routine Oth 07/20/21 14:39 Active Peripheral IV Insertion Adult [OM.PC] Routine Oth 07/20/21 18:30 Ordered Code Status [Resuscitation Status] Routine Resus Stat 07/20/21 18:57 Ordered Medication Orders Acetaminophen (Acetaminophen 325 Mg Tab) 650 mg PO Q4H PRN PRN Reason: Pain Bupropion HCl (Bupropion 150 Mg Tab.Er) 300 mg PO DAILY TOMY Ciprofloxacin (Ciprofloxacin 500 Mg Tab) 250 mg PO BID TOMY Cyanocobalamin (Cyanocobalamin (Vitamin B12) 100 Mcg Tab) 100 mcg PO ASDIRECTED TOMY Duloxetine HCl (Duloxetine 30 Mg Cap) 30 mg PO DAILY TOMY Gabapentin (Gabapentin 400 Mg Cap) 800 mg PO TID TOMY Heparin Sodium (Porcine) (Heparin Sodium 5,000 Units/Ml Vial) 5,000 units SUBCUT Q8HR TOMY Sodium Chloride (Normal Saline) 1,000 mls @ 75 mls/hr IV ASDIRECTED TOMY Levothyroxine Sodium (Levothyroxine 50 Mcg Tab) 50 mcg PO ACBREAKFAST TOMY Non-Formulary Medication (Multivitamin [Multivitamins]) 1 each PO ASDIRECTED TOMY Sodium Chloride (Sodium Chloride 0.9% 10 Ml Syringe) 10 ml FLUSH ASDIRECTED PRN PRN Reason: Keep Vein Open Assessment/Plan Comment:: Acute encephalopathy, likely toxic-metabolic Unclear origin now improved - per daughter ct head: IMPRESSION: No acute intracranial process. less likely stroke, possible seizure - the fairly quick improvement, the noted shaking activity makes this more likely - postictal status Might relate to urinary tract infection Mildly elevated liver enzymes are noted, we will check ammonia level, check B12, folate levels History of possible seizure disorder Continue Neurontin Will need further follow-up with neurology Monitor closely for stroke symptoms Consider MRI Urinary tract infection Obtain urine culture Empirical treatment with ciprofloxacin Hypothyroidism Continue Synthroid Elevated hemoglobin with normal RBC Hydrate now Monitor blood counts History of depression Continue Cymbalta, bupropion dvt prophylaxis- sq heparin code status d/w pt and daughter - patient elects DNR/DNI
[2021-07-20] MEDS: Acetaminophen 325 MG Tab PO PRN (20:26)
[2021-07-20] MEDS: Ciprofloxacin 500 MG Tab PO SCH (20:27)
[2021-07-20] MEDS: Gabapentin 400 MG Cap PO SCH (20:27)
[2021-07-20] MEDS ORDERED: Ondansetron 4 MG/2 ML SDV IVPUSH PRN (20:40)
[2021-07-20] MEDS: Heparin Sodium 5,000 Units/ML Vial SUBCUT SCH (21:39)
[2021-07-21] MEDS: Acetaminophen 325 MG Tab PO PRN (01:05)
[2021-07-21] MEDS: Heparin Sodium 5,000 Units/ML Vial SUBCUT SCH ×3 (05:41→21:06)
[2021-07-21] MEDS: Levothyroxine 50 MCG Tab PO SCH (05:41)
[2021-07-21 06:48] LABS: ANION GAP 13.4 mEq/L (7-13)
[2021-07-21] MEDS: Gabapentin 400 MG Cap PO SCH ×3 (08:28→21:07)
[2021-07-21] MEDS: buPROPion 150 MG Tab.ER PO SCH (08:29)
[2021-07-21] MEDS: Ciprofloxacin 500 MG Tab PO SCH ×2 (08:29→21:07)
[2021-07-21] MEDS: DULoxetine 30 MG Cap PO SCH (08:29)
[2021-07-21] MEDS ORDERED: Potassium Chloride 10 MEQ Tab.ER PO ONE (11:20)
--- NOTE | 2021-07-21 11:24 | PCM.PN ---
- General Info Date of Service: 07/21/21 Admission Dx/Problem (Free Text): Admission Diagnosis/Problem Admission Diagnosis/Problem Altered mental status Subjective Update: the patient's mental status significantly improved She is alert, oriented 3, able to engage in conversation He has been up and walking with cane, feels somewhat weak No headache or associated seizure since admission did not sleep well last night - Review of Systems General: Reports: Weakness. Denies: Fever Pulmonary: Denies: Shortness of Breath Cardiovascular: Denies: Chest Pain, Edema Neurological: Denies: Confusion - Patient Data Vitals - Most Recent: Last Vital Signs Temp 97.7 F 07/21/21 08:15 Pulse 73 07/21/21 08:15 Resp 20 07/21/21 08:15 BP 146/52 H 07/21/21 08:15 Pulse Ox 99 07/21/21 08:15 Weight - Most Recent: 166 lb I&O - Last 24 Hours: Intake & Output 07/20/21 07/21/21 07/21/21 22:59 06:59 14:59 Intake Total 150 Output Total 100 125 Balance -100 25 Lab Results Last 24 Hours: Laboratory Results - last 24 hr 07/20/21 07/20/21 07/20/21 Range/Units 15:01 15:01 15:01 WBC 7.5 (5.0-10.0) 10^3/uL RBC 4.90 (4.2-5.4) 10^6/uL Hgb 17.4 H D (12.0-16.0) g/dL Hct 49.4 H (37.0-47.0) % MCV 100.8 H (80-100) fL MCH 35.5 H (27.0-34.0) pg MCHC 35.2 H (33.0-35.0) g/dL Plt Count 234 (150-450) 10^3/uL Neut % (Auto) 69.0 (42.2-75.2) % Lymph % (Auto) 20.2 L (20.5-50.1) % [place] % (Auto) 10.1 H (2-8) % Eos % (Auto) 0.3 L (1.0-3.0) % Baso % (Auto) 0.4 (0.0-1.0) % PT 10.0 (9.0-12.0) SEC INR 1.0 (0.9-1.2) Sodium 142 (136-145) mmol/L Potassium 4.4 (3.5-5.1) mmol/L Chloride 102 (98-107) mmol/L Carbon Dioxide 20 L (21-32) mmol/L Anion Gap 24.4 H (7-13) mEq/L BUN 15 (7-18) mg/dL Creatinine 0.97 (0.55-1.02) mg/dL Est Cr Clr Drug Dosing TNP Estimated GFR (MDRD) 56 BUN/Creatinine Ratio 15.5 (No establ ref range) Glucose 109 H (70-99) mg/dL Lactic Acid (0.4-2.0) mmol/L Calcium 9.3 (8.5-10.1) mg/dL Total Bilirubin 0.8 (0.2-1.0) mg/dL Direct Bilirubin (0.0-0.2) mg/dL Indirect Bilirubin AST 95 H (15-37) U/L ALT 138 H (14-59) U/L Alkaline Phosphatase 160 H (46-116) U/L Ammonia (11-32) umol/L Troponin I High Sens 8 (<=51) pg/mL Total Protein 6.8 (6.4-8.2) g/dL Albumin 3.8 (3.4-5.0) g/dL Globulin 3.0 Albumin/Globulin Ratio 1.3 Vitamin B12 (193-986) pg/mL Folate (8.6-58.9) ng/mL Urine Color (YELLOW) Urine Appearance (CLEAR) Urine pH (5.0-9.0) Ur Specific [place] (1.005-1.030) Urine Protein (NEGATIVE) Urine Glucose (UA) (NEGATIVE) Urine Ketones (NEGATIVE) Urine Occult Blood (NEGATIVE) Urine Nitrite (NEGATIVE) Urine Bilirubin (NEGATIVE) Urine Urobilinogen (0.2-1.0) mg/dL Ur Leukocyte Esterase (NEGATIVE) U Hyaline Cast (Auto) Urine RBC (0-5) /HPF Urine WBC (0-5/HPF) /HPF Ur Epithelial Cells (NOT SEEN) /HPF Urine Bacteria (0-FEW/HPF) /HPF Urine Mucus (NOT SEEN) /LPF Urine Yeast (NOT SEEN) /HPF Ethyl Alcohol < 3 (0) mg/dL SARS-CoV-2 RNA ([facility]A) (NEGATIVE) 07/20/21 07/20/21 07/20/21 Range/Units 15:01 15:10 15:19 WBC (5.0-10.0) 10^3/uL RBC (4.2-5.4) 10^6/uL Hgb (12.0-16.0) g/dL Hct (37.0-47.0) % MCV (80-100) fL MCH (27.0-34.0) pg MCHC (33.0-35.0) g/dL Plt Count (150-450) 10^3/uL Neut % (Auto) (42.2-75.2) % Lymph % (Auto) (20.5-50.1) % [place] % (Auto) (2-8) % Eos % (Auto) (1.0-3.0) % Baso % (Auto) (0.0-1.0) % PT (9.0-12.0) SEC INR (0.9-1.2) Sodium (136-145) mmol/L Potassium (3.5-5.1) mmol/L Chloride (98-107) mmol/L Carbon Dioxide (21-32) mmol/L Anion Gap (7-13) mEq/L BUN (7-18) mg/dL Creatinine (0.55-1.02) mg/dL Est Cr Clr Drug Dosing Estimated GFR (MDRD) BUN/Creatinine Ratio (No establ ref range) Glucose (70-99) mg/dL Lactic Acid 1.9 (0.4-2.0) mmol/L Calcium (8.5-10.1) mg/dL Total Bilirubin (0.2-1.0) mg/dL Direct Bilirubin (0.0-0.2) mg/dL Indirect Bilirubin AST (15-37) U/L ALT (14-59) U/L Alkaline Phosphatase (46-116) U/L Ammonia (11-32) umol/L Troponin I High Sens (<=51) pg/mL Total Protein (6.4-8.2) g/dL Albumin (3.4-5.0) g/dL Globulin Albumin/Globulin Ratio Vitamin B12 (193-986) pg/mL Folate (8.6-58.9) ng/mL Urine Color Dark yellow (YELLOW) Urine Appearance Slightly cloudy (CLEAR) Urine pH 6.0 (5.0-9.0) Ur Specific [place] >= 1.030 (1.005-1.030) Urine Protein 30 H (NEGATIVE) Urine Glucose (UA) Negative (NEGATIVE) Urine Ketones >=160 H (NEGATIVE) Urine Occult Blood Negative (NEGATIVE) Urine Nitrite Negative (NEGATIVE) Urine Bilirubin Moderate H (NEGATIVE) Urine Urobilinogen 0.2 (0.2-1.0) mg/dL Ur Leukocyte Esterase Small H (NEGATIVE) U Hyaline Cast (Auto) Few Urine RBC 0-5 (0-5) /HPF Urine WBC 10-20 H (0-5/HPF) /HPF Ur Epithelial Cells Many H (NOT SEEN) /HPF Urine Bacteria Few (0-FEW/HPF) /HPF Urine Mucus Moderate H (NOT SEEN) /LPF Urine Yeast Few H (NOT SEEN) /HPF Ethyl Alcohol (0) mg/dL SARS-CoV-2 RNA ([facility]) Negative (NEGATIVE) 07/20/21 07/20/21 07/21/21 Range/Units 18:49 18:49 05:50 WBC (5.0-10.0) 10^3/uL RBC (4.2-5.4) 10^6/uL Hgb (12.0-16.0) g/dL Hct (37.0-47.0) % MCV (80-100) fL MCH (27.0-34.0) pg MCHC (33.0-35.0) g/dL Plt Count (150-450) 10^3/uL Neut % (Auto) (42.2-75.2) % Lymph % (Auto) (20.5-50.1) % [place] % (Auto) (2-8) % Eos % (Auto) (1.0-3.0) % Baso % (Auto) (0.0-1.0) % PT (9.0-12.0) SEC INR (0.9-1.2) Sodium 143 (136-145) mmol/L Potassium 3.4 L (3.5-5.1) mmol/L Chloride 106 (98-107) mmol/L Carbon Dioxide 27 (21-32) mmol/L Anion Gap 13.4 H (7-13) mEq/L BUN 15 (7-18) mg/dL Creatinine 0.98 (0.55-1.02) mg/dL Est Cr Clr Drug Dosing 40.40 Estimated GFR (MDRD) 55 BUN/Creatinine Ratio (No establ ref range) Glucose 104 H (70-99) mg/dL Lactic Acid (0.4-2.0) mmol/L Calcium 8.4 L (8.5-10.1) mg/dL Total Bilirubin 0.8 (0.2-1.0) mg/dL Direct Bilirubin 0.2 (0.0-0.2) mg/dL Indirect Bilirubin 0.6 AST 72 H (15-37) U/L ALT 111 H (14-59) U/L Alkaline Phosphatase 123 H (46-116) U/L Ammonia < 10 L (11-32) umol/L Troponin I High Sens (<=51) pg/mL Total Protein 5.6 L (6.4-8.2) g/dL Albumin 3.1 L (3.4-5.0) g/dL Globulin 2.5 Albumin/Globulin Ratio 1.24 Vitamin B12 2986 H (193-986) pg/mL Folate 13.9 (8.6-58.9) ng/mL Urine Color (YELLOW) Urine Appearance (CLEAR) Urine pH (5.0-9.0) Ur Specific [place] (1.005-1.030) Urine Protein (NEGATIVE) Urine Glucose (UA) (NEGATIVE) Urine Ketones (NEGATIVE) Urine Occult Blood (NEGATIVE) Urine Nitrite (NEGATIVE) Urine Bilirubin (NEGATIVE) Urine Urobilinogen (0.2-1.0) mg/dL Ur Leukocyte Esterase (NEGATIVE) U Hyaline Cast (Auto) Urine RBC (0-5) /HPF Urine WBC (0-5/HPF) /HPF Ur Epithelial Cells (NOT SEEN) /HPF Urine Bacteria (0-FEW/HPF) /HPF Urine Mucus (NOT SEEN) /LPF Urine Yeast (NOT SEEN) /HPF Ethyl Alcohol (0) mg/dL SARS-CoV-2 RNA ([place]) (NEGATIVE) 07/21/21 Range/Units 05:50 WBC 6.8 (5.0-10.0) 10^3/uL RBC 4.52 (4.2-5.4) 10^6/uL Hgb 15.5 D (12.0-16.0) g/dL Hct 46.5 (37.0-47.0) % MCV 102.9 H (80-100) fL MCH 34.3 H (27.0-34.0) pg MCHC 33.3 (33.0-35.0) g/dL Plt Count 214 (150-450) 10^3/uL Neut % (Auto) 50.3 (42.2-75.2) % Lymph % (Auto) 35.5 (20.5-50.1) % [place] % (Auto) 11.1 H (2-8) % Eos % (Auto) 2.5 (1.0-3.0) % Baso % (Auto) 0.6 (0.0-1.0) % PT (9.0-12.0) SEC INR (0.9-1.2) Sodium (136-145) mmol/L Potassium (3.5-5.1) mmol/L Chloride (98-107) mmol/L Carbon Dioxide (21-32) mmol/L Anion Gap (7-13) mEq/L BUN (7-18) mg/dL Creatinine (0.55-1.02) mg/dL Est Cr Clr Drug Dosing Estimated GFR (MDRD) BUN/Creatinine Ratio (No establ ref range) Glucose (70-99) mg/dL Lactic Acid (0.4-2.0) mmol/L Calcium (8.5-10.1) mg/dL Total Bilirubin (0.2-1.0) mg/dL Direct Bilirubin (0.0-0.2) mg/dL Indirect Bilirubin AST (15-37) U/L ALT (14-59) U/L Alkaline Phosphatase (46-116) U/L Ammonia (11-32) umol/L Troponin I High Sens (<=51) pg/mL Total Protein (6.4-8.2) g/dL Albumin (3.4-5.0) g/dL Globulin Albumin/Globulin Ratio Vitamin B12 (193-986) pg/mL Folate (8.6-58.9) ng/mL Urine Color (YELLOW) Urine Appearance (CLEAR) Urine pH (5.0-9.0) Ur Specific [place] (1.005-1.030) Urine Protein (NEGATIVE) Urine Glucose (UA) (NEGATIVE) Urine Ketones (NEGATIVE) Urine Occult Blood (NEGATIVE) Urine Nitrite (NEGATIVE) Urine Bilirubin (NEGATIVE) Urine Urobilinogen (0.2-1.0) mg/dL Ur Leukocyte Esterase (NEGATIVE) U Hyaline Cast (Auto) Urine RBC (0-5) /HPF Urine WBC (0-5/HPF) /HPF Ur Epithelial Cells (NOT SEEN) /HPF Urine Bacteria (0-FEW/HPF) /HPF Urine Mucus (NOT SEEN) /LPF Urine Yeast (NOT SEEN) /HPF Ethyl Alcohol (0) mg/dL SARS-CoV-2 RNA ([facility]A) (NEGATIVE) [facility] Results Last 24 Hours: Microbiology 07/20/21 15:19 Urine Culture - Preliminary Urine, Voided 07/20/21 15:10 Influenza Type A Antigen Screen - Final Nasal, Unspecified NEGATIVE INFLUENZA A VIRUS AG REFERENCE RANGE: NEGATIVE Influenza Type B Antigen Screen - Final NEGATIVE INFLUENZA B VIRUS AG REFERENCE RANGE: NEGATIVE Med Orders - Current: Current Medications Acetaminophen (Acetaminophen 325 Mg Tab) 650 mg PO Q4H PRN PRN Reason: Pain Last Admin: 07/21/21 01:05 Dose: 650 mg Documented by: Bupropion HCl (Bupropion 150 Mg Tab.Er) 300 mg PO DAILY [facility] Last Admin: 07/21/21 08:29 Dose: 300 mg Documented by: Ciprofloxacin (Ciprofloxacin 500 Mg Tab) 250 mg PO BID [facility] Last Admin: 07/21/21 08:29 Dose: 250 mg Documented by: Cyanocobalamin (Cyanocobalamin (Vitamin B12) 100 Mcg Tab) 100 mcg PO ASDIRECTED [facility] Duloxetine HCl (Duloxetine 30 Mg Cap) 30 mg PO DAILY [facility] Last Admin: 07/21/21 08:29 Dose: 30 mg Documented by: Gabapentin (Gabapentin 400 Mg Cap) 800 mg PO TID [facility] Last Admin: 07/21/21 08:28 Dose: 800 mg Documented by: Heparin Sodium (Porcine) (Heparin Sodium 5,000 Units/Ml Vial) 5,000 units SUBCUT Q8HR [facility] Last Admin: 07/21/21 05:41 Dose: 5,000 units Documented by: Levothyroxine Sodium (Levothyroxine 50 Mcg Tab) 50 mcg PO ACBREAKFAST [facility] Last Admin: 07/21/21 05:41 Dose: 50 mcg Documented by: Non-Formulary Medication (Multivitamin [Multivitamins]) 1 each PO DAILY [facility] Ondansetron HCl (Ondansetron 4 Mg/2 Ml Sdv) 4 mg IVPUSH Q6H PRN PRN Reason: Nausea/Vomiting Last Admin: 07/20/21 21:39 Dose: 4 mg Documented by: Potassium Chloride (Potassium Chloride 10 Meq Tab.Er) 40 meq PO ONETIME ONE Stop: 07/21/21 11:21 Sodium Chloride (Sodium Chloride 0.9% 10 Ml Syringe) 10 ml FLUSH ASDIRECTED PRN PRN Reason: Keep Vein Open Discontinued Medications Sodium Chloride (Normal Saline) 1,000 mls @ 75 mls/hr IV ASDIRECTED [facility]OMY Last Admin: 07/20/21 20:26 Dose: 75 mls/hr Documented by: - Exam General: Alert, Oriented Lungs: Clear to Auscultation, Normal Respiratory Effort Cardiovascular: Regular Rate, Regular Rhythm GI/Abdominal Exam: Normal Bowel Sounds, Soft, Non-Tender Extremities: Pedal Edema (1+) - Patient Data Lab Results Last 24 hrs: Laboratory Results - last 24 hr 07/20/21 07/20/21 07/20/21 Range/Units 15:01 15:01 15:01 WBC 7.5 (5.0-10.0) 10^3/uL RBC 4.90 (4.2-5.4) 10^6/uL Hgb 17.4 H D (12.0-16.0) g/dL Hct 49.4 H (37.0-47.0) % MCV 100.8 H (80-100) fL MCH 35.5 H (27.0-34.0) pg MCHC 35.2 H (33.0-35.0) g/dL Plt Count 234 (150-450) 10^3/uL Neut % (Auto) 69.0 (42.2-75.2) % Lymph % (Auto) 20.2 L (20.5-50.1) % [place] % (Auto) 10.1 H (2-8) % Eos % (Auto) 0.3 L (1.0-3.0) % Baso % (Auto) 0.4 (0.0-1.0) % PT 10.0 (9.0-12.0) SEC INR 1.0 (0.9-1.2) Sodium 142 (136-145) mmol/L Potassium 4.4 (3.5-5.1) mmol/L Chloride 102 (98-107) mmol/L Carbon Dioxide 20 L (21-32) mmol/L Anion Gap 24.4 H (7-13) mEq/L BUN 15 (7-18) mg/dL Creatinine 0.97 (0.55-1.02) mg/dL Est Cr Clr Drug Dosing TNP Estimated GFR (MDRD) 56 BUN/Creatinine Ratio 15.5 (No establ ref range) Glucose 109 H (70-99) mg/dL Lactic Acid (0.4-2.0) mmol/L Calcium 9.3 (8.5-10.1) mg/dL Total Bilirubin 0.8 (0.2-1.0) mg/dL Direct Bilirubin (0.0-0.2) mg/dL Indirect Bilirubin AST 95 H (15-37) U/L ALT 138 H (14-59) U/L Alkaline Phosphatase 160 H (46-116) U/L Ammonia (11-32) umol/L Troponin I High Sens 8 (<=51) pg/mL Total Protein 6.8 (6.4-8.2) g/dL Albumin 3.8 (3.4-5.0) g/dL Globulin 3.0 Albumin/Globulin Ratio 1.3 Vitamin B12 (193-986) pg/mL Folate (8.6-58.9) ng/mL Urine Color (YELLOW) Urine Appearance (CLEAR) Urine pH (5.0-9.0) Ur Specific [place] (1.005-1.030) Urine Protein (NEGATIVE) Urine Glucose (UA) (NEGATIVE) Urine Ketones (NEGATIVE) Urine Occult Blood (NEGATIVE) Urine Nitrite (NEGATIVE) Urine Bilirubin (NEGATIVE) Urine Urobilinogen (0.2-1.0) mg/dL Ur Leukocyte Esterase (NEGATIVE) U Hyaline Cast (Auto) Urine RBC (0-5) /HPF Urine WBC (0-5/HPF) /HPF Ur Epithelial Cells (NOT SEEN) /HPF Urine Bacteria (0-FEW/HPF) /HPF Urine Mucus (NOT SEEN) /LPF Urine Yeast (NOT SEEN) /HPF Ethyl Alcohol < 3 (0) mg/dL SARS-CoV-2 RNA ([place]) (NEGATIVE) 07/20/21 07/20/21 07/20/21 Range/Units 15:01 15:10 15:19 WBC (5.0-10.0) 10^3/uL RBC (4.2-5.4) 10^6/uL Hgb (12.0-16.0) g/dL Hct (37.0-47.0) % MCV (80-100) fL MCH (27.0-34.0) pg MCHC (33.0-35.0) g/dL Plt Count (150-450) 10^3/uL Neut % (Auto) (42.2-75.2) % Lymph % (Auto) (20.5-50.1) % [place] % (Auto) (2-8) % Eos % (Auto) (1.0-3.0) % Baso % (Auto) (0.0-1.0) % PT (9.0-12.0) SEC INR (0.9-1.2) Sodium (136-145) mmol/L Potassium (3.5-5.1) mmol/L Chloride (98-107) mmol/L Carbon Dioxide (21-32) mmol/L Anion Gap (7-13) mEq/L BUN (7-18) mg/dL Creatinine (0.55-1.02) mg/dL Est Cr Clr Drug Dosing Estimated GFR (MDRD) BUN/Creatinine Ratio (No establ ref range) Glucose (70-99) mg/dL Lactic Acid 1.9 (0.4-2.0) mmol/L Calcium (8.5-10.1) mg/dL Total Bilirubin (0.2-1.0) mg/dL Direct Bilirubin (0.0-0.2) mg/dL Indirect Bilirubin AST (15-37) U/L ALT (14-59) U/L Alkaline Phosphatase (46-116) U/L Ammonia (11-32) umol/L Troponin I High Sens (<=51) pg/mL Total Protein (6.4-8.2) g/dL Albumin (3.4-5.0) g/dL Globulin Albumin/Globulin Ratio Vitamin B12 (193-986) pg/mL Folate (8.6-58.9) ng/mL Urine Color Dark yellow (YELLOW) Urine Appearance Slightly cloudy (CLEAR) Urine pH 6.0 (5.0-9.0) Ur Specific [place] >= 1.030 (1.005-1.030) Urine Protein 30 H (NEGATIVE) Urine Glucose (UA) Negative (NEGATIVE) Urine Ketones >=160 H (NEGATIVE) Urine Occult Blood Negative (NEGATIVE) Urine Nitrite Negative (NEGATIVE) Urine Bilirubin Moderate H (NEGATIVE) Urine Urobilinogen 0.2 (0.2-1.0) mg/dL Ur Leukocyte Esterase Small H (NEGATIVE) U Hyaline Cast (Auto) Few Urine RBC 0-5 (0-5) /HPF Urine WBC 10-20 H (0-5/HPF) /HPF Ur Epithelial Cells Many H (NOT SEEN) /HPF Urine Bacteria Few (0-FEW/HPF) /HPF Urine Mucus Moderate H (NOT SEEN) /LPF Urine Yeast Few H (NOT SEEN) /HPF Ethyl Alcohol (0) mg/dL SARS-CoV-2 RNA ([facility]) Negative (NEGATIVE) 07/20/21 07/20/21 07/21/21 Range/Units 18:49 18:49 05:50 WBC (5.0-10.0) 10^3/uL RBC (4.2-5.4) 10^6/uL Hgb (12.0-16.0) g/dL Hct (37.0-47.0) % MCV (80-100) fL MCH (27.0-34.0) pg MCHC (33.0-35.0) g/dL Plt Count (150-450) 10^3/uL Neut % (Auto) (42.2-75.2) % Lymph % (Auto) (20.5-50.1) % [place] % (Auto) (2-8) % Eos % (Auto) (1.0-3.0) % Baso % (Auto) (0.0-1.0) % PT (9.0-12.0) SEC INR (0.9-1.2) Sodium 143 (136-145) mmol/L Potassium 3.4 L (3.5-5.1) mmol/L Chloride 106 (98-107) mmol/L Carbon Dioxide 27 (21-32) mmol/L Anion Gap 13.4 H (7-13) mEq/L BUN 15 (7-18) mg/dL Creatinine 0.98 (0.55-1.02) mg/dL Est Cr Clr Drug Dosing 40.40 Estimated GFR (MDRD) 55 BUN/Creatinine Ratio (No establ ref range) Glucose 104 H (70-99) mg/dL Lactic Acid (0.4-2.0) mmol/L Calcium 8.4 L (8.5-10.1) mg/dL Total Bilirubin 0.8 (0.2-1.0) mg/dL Direct Bilirubin 0.2 (0.0-0.2) mg/dL Indirect Bilirubin 0.6 AST 72 H (15-37) U/L ALT 111 H (14-59) U/L Alkaline Phosphatase 123 H (46-116) U/L Ammonia < 10 L (11-32) umol/L Troponin I High Sens (<=51) pg/mL Total Protein 5.6 L (6.4-8.2) g/dL Albumin 3.1 L (3.4-5.0) g/dL Globulin 2.5 Albumin/Globulin Ratio 1.24 Vitamin B12 2986 H (193-986) pg/mL Folate 13.9 (8.6-58.9) ng/mL Urine Color (YELLOW) Urine Appearance (CLEAR) Urine pH (5.0-9.0) Ur Specific [place] (1.005-1.030) Urine Protein (NEGATIVE) Urine Glucose (UA) (NEGATIVE) Urine Ketones (NEGATIVE) Urine Occult Blood (NEGATIVE) Urine Nitrite (NEGATIVE) Urine Bilirubin (NEGATIVE) Urine Urobilinogen (0.2-1.0) mg/dL Ur Leukocyte Esterase (NEGATIVE) U Hyaline Cast (Auto) Urine RBC (0-5) /HPF Urine WBC (0-5/HPF) /HPF Ur Epithelial Cells (NOT SEEN) /HPF Urine Bacteria (0-FEW/HPF) /HPF Urine Mucus (NOT SEEN) /LPF Urine Yeast (NOT SEEN) /HPF Ethyl Alcohol (0) mg/dL SARS-CoV-2 RNA ([facility]) (NEGATIVE) 07/21/21 Range/Units 05:50 WBC 6.8 (5.0-10.0) 10^3/uL RBC 4.52 (4.2-5.4) 10^6/uL Hgb 15.5 D (12.0-16.0) g/dL Hct 46.5 (37.0-47.0) % MCV 102.9 H (80-100) fL MCH 34.3 H (27.0-34.0) pg MCHC 33.3 (33.0-35.0) g/dL Plt Count 214 (150-450) 10^3/uL Neut % (Auto) 50.3 (42.2-75.2) % Lymph % (Auto) 35.5 (20.5-50.1) % [place] % (Auto) 11.1 H (2-8) % Eos % (Auto) 2.5 (1.0-3.0) % Baso % (Auto) 0.6 (0.0-1.0) % PT (9.0-12.0) SEC INR (0.9-1.2) Sodium (136-145) mmol/L Potassium (3.5-5.1) mmol/L Chloride (98-107) mmol/L Carbon Dioxide (21-32) mmol/L Anion Gap (7-13) mEq/L BUN (7-18) mg/dL Creatinine (0.55-1.02) mg/dL Est Cr Clr Drug Dosing Estimated GFR (MDRD) BUN/Creatinine Ratio (No establ ref range) Glucose (70-99) mg/dL Lactic Acid (0.4-2.0) mmol/L Calcium (8.5-10.1) mg/dL Total Bilirubin (0.2-1.0) mg/dL Direct Bilirubin (0.0-0.2) mg/dL Indirect Bilirubin AST (15-37) U/L ALT (14-59) U/L Alkaline Phosphatase (46-116) U/L Ammonia (11-32) umol/L Troponin I High Sens (<=51) pg/mL Total Protein (6.4-8.2) g/dL Albumin (3.4-5.0) g/dL Globulin Albumin/Globulin Ratio Vitamin B12 (193-986) pg/mL Folate (8.6-58.9) ng/mL Urine Color (YELLOW) Urine Appearance (CLEAR) Urine pH (5.0-9.0) Ur Specific [place] (1.005-1.030) Urine Protein (NEGATIVE) Urine Glucose (UA) (NEGATIVE) Urine Ketones (NEGATIVE) Urine Occult Blood (NEGATIVE) Urine Nitrite (NEGATIVE) Urine Bilirubin (NEGATIVE) Urine Urobilinogen (0.2-1.0) mg/dL Ur Leukocyte Esterase (NEGATIVE) U Hyaline Cast (Auto) Urine RBC (0-5) /HPF Urine WBC (0-5/HPF) /HPF Ur Epithelial Cells (NOT SEEN) /HPF Urine Bacteria (0-FEW/HPF) /HPF Urine Mucus (NOT SEEN) /LPF Urine Yeast (NOT SEEN) /HPF Ethyl Alcohol (0) mg/dL SARS-CoV-2 RNA ([facility]A) (NEGATIVE) Result Diagrams: 07/21/21 05:50 07/21/21 05:50 [place] Results Last 24 hrs: Microbiology 07/20/21 15:19 Urine Culture - Preliminary Urine, Voided 07/20/21 15:10 Influenza Type A Antigen Screen - Final Nasal, Unspecified NEGATIVE INFLUENZA A VIRUS AG REFERENCE RANGE: NEGATIVE Influenza Type B Antigen Screen - Final NEGATIVE INFLUENZA B VIRUS AG REFERENCE RANGE: NEGATIVE Sepsis Event Note - Evaluation Sepsis Screening Result: No Definite Risk - Focused Exam Vital Signs: Vital Signs Temp Pulse Resp BP Pulse Ox 07/21/21 08:15 97.7 F 73 20 146/52 H 99 07/21/21 04:00 97.9 F 65 18 142/52 H - Problem List & Annotations (1) Altered mental status SNOMED Code(s): 899418853 Code(s): R41.82 - ALTERED MENTAL STATUS, UNSPECIFIED Status: Acute Current Visit: No Qualifiers: Altered mental status type: unspecified Qualified Code(s): R41.82 - Altered mental status, unspecified (2) Elevated liver enzymes SNOMED Code(s): 408664754 Code(s): R74.8 - ABNORMAL LEVELS OF OTHER SERUM ENZYMES Status: Acute Current Visit: No (3) Seizure-like activity SNOMED Code(s): 049132301 Code(s): R56.9 - UNSPECIFIED CONVULSIONS Status: Acute Current Visit: No (4) Urinary tract infection SNOMED Code(s): 71137743 Code(s): N39.0 - URINARY TRACT INFECTION, SITE NOT SPECIFIED Status: Acute Current Visit: No Qualifiers: Urinary tract infection type: acute cystitis Hematuria presence: without hematuria Qualified Code(s): N30.00 - Acute cystitis without hematuria - Problem List Review Problem List Initiated/Reviewed/Updated: Yes - My Orders Last 24 Hours: My Active Orders 07/20/21 18:24 Acetaminophen [TylenoL] 650 mg PO Q4H PRN 07/20/21 18:30 Oxygen Therapy [RC] PRN Peripheral IV Care [RC] 06,14,22 Up With Assistance [RC] ASDIRECTED VTE/DVT Education [RC] Vital Signs [RC] 00,04,08,12,16,20 Cyanocobalamin (Vitamin B12) [Vitamin B12] 100 mcg PO ASDIRECTED Multivitamin [Multivitamins] 1 each PO DAILY Sodium Chloride 0.9% [Saline Flush] 10 ml FLUSH ASDIRECTED PRN Peripheral IV Insertion Adult [OM.PC] Routine 07/20/21 18:57 Code Status [Resuscitation Status] Routine 07/20/21 20:40 Ondansetron [Zofran] 4 mg IVPUSH Q6H PRN 07/20/21 21:00 Ciprofloxacin [Ciprofloxacin HCl] 250 mg PO BID Gabapentin [Neurontin] 800 mg PO TID 07/20/21 22:00 Heparin Sodium 5,000 units SUBCUT Q8HR 07/21/21 06:00 Levothyroxine [Synthroid] 50 mcg PO ACBREAKFAST 07/21/21 09:00 DULoxetine [Cymbalta] 30 mg PO DAILY buPROPion [Wellbutrin XL] 300 mg PO DAILY 07/21/21 11:20 Potassium Chloride [Klor-Con 10] 40 meq PO ONETIME ONE - Plan Plan:: Acute encephalopathy, likely toxic-metabolic Unclear origin now much improved - appears back to baseline ct head: IMPRESSION: No acute intracranial process. unlikely stroke, possible seizure - the fairly quick improvement, the noted shaking activity makes this more likely - postictal status Might relate to urinary tract infection possible complicated migraine Mildly elevated liver enzymes are noted, normal ammonia level, B12, folate levels History of possible seizure disorder Continue Neurontin Will need further follow-up with neurology Monitor closely for stroke symptoms Consider MRI as out pt Urinary tract infection urine culture Pending Empirical treatment with ciprofloxacin Hypothyroidism Continue Synthroid Elevated hemoglobin with normal RBC stop IVF Monitor blood counts hypokalemia give supplement, stop IVF History of depression Continue Cymbalta, bupropion dvt prophylaxis- sq heparin code status d/w pt and daughter - patient elects DNR/DNI
[2021-07-21] MEDS: Multivitamin Tab PO SCH (13:37)
[2021-07-21] MEDS: Cyanocobalamin (Vitamin B12) 100 MCG Tab PO SCH (13:37)
[2021-07-21] MEDS ORDERED: Melatonin 3 MG Tab PO PRN (20:40)
[2021-07-22] MEDS: Levothyroxine 50 MCG Tab PO SCH (06:32)
[2021-07-22] MEDS: Heparin Sodium 5,000 Units/ML Vial SUBCUT SCH (06:32)
[2021-07-22 07:52] VITALS: BP 137/65; PULSE 64
[2021-07-22] MEDS: buPROPion 150 MG Tab.ER PO SCH (08:10)
[2021-07-22] MEDS: DULoxetine 30 MG Cap PO SCH (08:11)
[2021-07-22] MEDS: Multivitamin Tab PO SCH (08:11)
[2021-07-22] MEDS: Gabapentin 400 MG Cap PO SCH (08:11)
[2021-07-22] MEDS: Cyanocobalamin (Vitamin B12) 100 MCG Tab PO SCH (08:11)
[2021-07-22] MEDS: Ciprofloxacin 500 MG Tab PO SCH (08:11)
--- NOTE | 2021-07-22 10:50 | PCM.DCSUM1 ---
Discharge Summary - Hospital Course Free Text/Narrative:: presented with UE tremors, confusion, "not feeling well" Acute encephalopathy, likely toxic-metabolic Unclear origin now resolved - appears back to baseline ct head: IMPRESSION: No acute intracranial process. unlikely stroke, possible seizure - the fairly quick improvement, the noted shaking activity makes this more likely - postictal status Might relate to urinary tract infection possible complicated migraine Mildly elevated liver enzymes are noted - improving, normal ammonia level, B12, folate levels History of possible seizure disorder Continue Neurontin Will need further follow-up with neurology will arrange f/up with neurology Urinary tract infection urine culture: e coli resistant to Cipro, sens to cephazolin Hypothyroidism Continue Synthroid History of depression Continue Cymbalta, bupropion Diagnosis: Stroke: No - Discharge Data Discharge Date: 07/22/21 Discharge Disposition: Home, Self-Care 01 Condition: Good - Referral to Home Health Primary Care Physician: PCP None - Discharge Diagnosis/Problem(s) (1) Altered mental status SNOMED Code(s): 853004530 ICD Code: R41.82 - ALTERED MENTAL STATUS, UNSPECIFIED Status: Acute Current Visit: No Qualifiers: Altered mental status type: unspecified Qualified Code(s): R41.82 - Altered mental status, unspecified (2) Elevated liver enzymes SNOMED Code(s): 373605610 ICD Code: R74.8 - ABNORMAL LEVELS OF OTHER SERUM ENZYMES Status: Acute Current Visit: No (3) Seizure-like activity SNOMED Code(s): 078554167 ICD Code: R56.9 - UNSPECIFIED CONVULSIONS Status: Acute Current Visit: No (4) Urinary tract infection SNOMED Code(s): 62264379 ICD Code: N39.0 - URINARY TRACT INFECTION, SITE NOT SPECIFIED Status: Acute Current Visit: No Qualifiers: Urinary tract infection type: acute cystitis Hematuria presence: without hematuria Qualified Code(s): N30.00 - Acute cystitis without hematuria - Patient Instructions Diet: Heart Healthy Diet Activity: As Tolerated - Discharge Plan *PRESCRIPTION DRUG MONITORING PROGRAM REVIEWED*: Not Applicable *COPY OF PRESCRIPTION DRUG MONITORING REPORT IN PATIENT ZOE: Not Applicable Prescriptions/Med Rec: cephALEXin [Keflex] 500 mg PO BID #10 cap Home Medications: Home Meds Gabapentin [Neurontin] 800 mg PO TID 12/07/16 [History] Calcium Carbonate [Calcium] 500 mg PO DAILY 03/30/17 [History] Cyanocobalamin (Vitamin B-12) [Vitamin B-12] 100 mcg PO DAILY 03/30/17 [History] DULoxetine [Cymbalta] 60 mg PO DAILY 03/30/17 [History] Magnesium Amino Acid Chelate [Magnesium] 100 mg PO DAILY 03/30/17 [History] Multivitamin [Multivitamins] 1 each PO DAILY 03/30/17 [History] [place]-3 Acid Ethyl Esters 1 gm PO DAILY 03/30/17 [History] Acetaminophen [Tylenol] 650 mg PO Q4H PRN #0 tablet 03/31/17 [Rx] Docusate Sodium/Sennosides [Senna Plus] 1 tab PO BEDTIME PRN #0 tablet 03/31/17 [Rx] Polyethylene Glycol 3350 [MiraLAX] 17 gm PO DAILY PRN #0 packet 03/31/17 [Rx] Levothyroxine [Synthroid] 50 mcg PO ACBREAKFAST 07/20/21 [History] buPROPion HCL [Bupropion Xl] 300 mg PO DAILY 07/20/21 [History] cephALEXin [Keflex] 500 mg PO BID #10 cap 07/22/21 [Rx] Oxygen Therapy Mode: Room Air Patient Handouts: Fall Prevention in the Home, Adult, [id number] - Discharge Summary/Plan Comment DC Time >30 min.: No Total # of Minutes for Discharge Time: 25 min - General Info Date of Service: 07/22/21 Admission Dx/Problem (Free Text: Admission Diagnosis/Problem Admission Diagnosis/Problem Altered mental status Subjective Update: the patient's mental status significantly improved She is alert, oriented 3, able to engage in conversation He has been up and walking with cane has walker for home as well No headache or associated seizure since admission Functional Status: Reports: Pain Controlled, Tolerating Diet, Ambulating - Review of Systems General: Denies: Fever, Weakness Pulmonary: Denies: Shortness of Breath Cardiovascular: Denies: Chest Pain Gastrointestinal: Denies: Abdominal Pain Neurological: Denies: Confusion - Patient Data Vitals - Most Recent: Last Vital Signs Temp 97.8 F 07/22/21 07:52 Pulse 64 07/22/21 07:52 Resp 16 07/22/21 07:52 BP 137/65 07/22/21 07:52 Pulse Ox 100 07/22/21 07:52 Weight - Most Recent: 166 lb I&O - Last 24 hours: Intake & Output 07/21/21 07/22/21 07/22/21 22:59 06:59 14:59 Intake Total 320 Balance 320 KEV Results - Last 24 hrs: Microbiology 07/20/21 15:19 Urine Culture - Final Urine, Voided Escherichia Coli 07/20/21 15:01 Aerobic Blood Culture - Preliminary Blood - Arm, Right NO GROWTH AFTER 1 DAY Anaerobic Blood Culture - Preliminary NO GROWTH AFTER 1 DAY 07/20/21 14:56 Aerobic Blood Culture - Preliminary Blood - Arm, Left NO GROWTH AFTER 1 DAY Anaerobic Blood Culture - Preliminary NO GROWTH AFTER 1 DAY Med Orders - Current: Current Medications Acetaminophen (Acetaminophen 325 Mg Tab) 650 mg PO Q4H PRN PRN Reason: Pain Last Admin: 07/21/21 01:05 Dose: 650 mg Documented by: Bupropion HCl (Bupropion 150 Mg Tab.Er) 300 mg PO DAILY [facility] Last Admin: 07/22/21 08:10 Dose: 300 mg Documented by: Cephalexin (Cephalexin 500 Mg Cap) 500 mg PO BID [facility] Cyanocobalamin (Cyanocobalamin (Vitamin B12) 100 Mcg Tab) 100 mcg PO DAILY [facility] Last Admin: 07/22/21 08:11 Dose: 100 mcg Documented by: Duloxetine HCl (Duloxetine 30 Mg Cap) 30 mg PO DAILY [facility] Last Admin: 07/22/21 08:11 Dose: 30 mg Documented by: Gabapentin (Gabapentin 400 Mg Cap) 800 mg PO TID [facility] Last Admin: 07/22/21 08:11 Dose: 800 mg Documented by: Heparin Sodium (Porcine) (Heparin Sodium 5,000 Units/Ml Vial) 5,000 units SUBCUT Q8HR [facility] Last Admin: 07/22/21 06:32 Dose: 5,000 units Documented by: Levothyroxine Sodium (Levothyroxine 50 Mcg Tab) 50 mcg PO ACBREAKFAST [facility] Last Admin: 07/22/21 06:32 Dose: 50 mcg Documented by: Melatonin (Melatonin 3 Mg Tab) 3 mg PO BEDTIME PRN PRN Reason: Sleep Last Admin: 07/21/21 21:09 Dose: 3 mg Documented by: Multivitamins/Minerals/Vitamin C (Multivitamin Tab) 1 tab PO DAILY [facility] Last Admin: 07/22/21 08:11 Dose: 1 tab Documented by: Ondansetron HCl (Ondansetron 4 Mg/2 Ml Sdv) 4 mg IVPUSH Q6H PRN PRN Reason: Nausea/Vomiting Last Admin: 07/20/21 21:39 Dose: 4 mg Documented by: Pneumococcal Polyvalent Vaccine (Pneumococcal Polyvalent-23 Vaccine 0.5 Ml Sdv) 0.5 ml IM .ONCE ONE Stop: 07/22/21 12:17 Sodium Chloride (Sodium Chloride 0.9% 10 Ml Syringe) 10 ml FLUSH ASDIRECTED PRN PRN Reason: Keep Vein Open Discontinued Medications Cephalexin (Cephalexin 500 Mg Cap) 500 mg PO TID TOMY Ciprofloxacin (Ciprofloxacin 500 Mg Tab) 250 mg PO BID TOMY Last Admin: 07/22/21 08:11 Dose: 250 mg Documented by: Sodium Chloride (Normal Saline) 1,000 mls @ 75 mls/hr IV ASDIRECTED TOMY Last Admin: 07/20/21 20:26 Dose: 75 mls/hr Documented by: Potassium Chloride (Potassium Chloride 10 Meq Tab.Er) 40 meq PO ONETIME ONE Stop: 07/21/21 11:21 Last Admin: 07/21/21 12:10 Dose: 40 meq Documented by: - Exam General: Reports: Alert, Oriented Neck: Reports: Supple Lungs: Reports: Clear to Auscultation, Normal Respiratory Effort Cardiovascular: Reports: Regular Rate, Regular Rhythm GI/Abdominal Exam: Normal Bowel Sounds, Soft, Non-Tender Skin: Reports: Warm, Dry Neurological: Reports: No New Focal Deficit Psy/Mental Status: Reports: Alert, Normal Affect, Normal Mood
[2021-07-22] MEDS ORDERED: Pneumococcal Polyvalent-23 Vaccine 0.5 ML SDV IM ONE (11:00)
[2021-07-22] MEDS ORDERED: Cephalexin 500 MG Cap PO SCH ×2 (11:00→14:00)
--- NOTE | 2021-07-23 12:06 | PCM.SN.2 ---
- Free Text/Narrative Note: addendum to discharge summary dated 07/22/21 pt would benefit from Shower chair due to limited strength and ability to balance while standing for prolonged periods
== END 2021-07-22 12:35 | disposition home or self-care (01) ==
LOC: DL.ED 14:40 → DL.MS 17:31
PROVIDERS: ADMIT Internal Medicine; ATTEND Internal Medicine
DX: G93.40 Encephalopathy, unspecified (principal); R53.1 Weakness; E03.9 Hypothyroidism, unspecified; G43.909 Migraine, unspecified, not intractable, without status migrainosus; E66.9 Obesity, unspecified; R74.8 Abnormal levels of other serum enzymes; N39.0 Urinary tract infection, site not specified; F32.9 Major depressive disorder, single episode, unspecified; Z20.822 Contact with and (suspected) exposure to COVID-19; Z88.5 Allergy status to narcotic agent; Z79.899 Other long term (current) drug therapy; Z98.890 Other specified postprocedural states; Z68.29 Body mass index [BMI] 29.0-29.9, adult
CPT/HCPCS: 36415; 70450; 80048; 80053; 80076; 80307; 81001; 82140; 82607; 82746; 83605; 84484; 85025; 85610; 87040; 87086; 87088; 87186; 87804; 90732; 93005; 99285; A9270; G0009; J1644; J2405; J7030; U0002; 96372; 96374; G0378